=== PATIENT | male | born 1945 | race Caucasian/White ===

== ENCOUNTER 2016-07-27 17:22 | Inpatient (IN) | payer MEDICARE, MEDICAID ==
[~2016-07-27] VITALS: Ht 190.5 cm; Wt 119.5 kg
[~2016-07-27 17:22] MED LIST: ASPI-991 PO; ATOR40TA PO; CARB-94 PO; CHOL100044 PO; DOCU250C30 PO; ESCI10TA PO; FERR325T6 PO; FURO20TA4 PO; GABA-534 PO; ISOS10TA2 PO; LISI10TA5 PO; LORA1TAB PO; METF500T4 PO; METO-302 PO; MIRT15TA8 PO; OXYC30TA2 PO; PANT40TA2 PO; POTA10CA43 PO; PREG50CA PO; PROP10TA10 PO; ZOLP10TA2 PO
[2016-07-27 20:00] VITALS: BP 159/78
--- NOTE | 2016-07-27 20:40 | NUR ---
REPRESENTATIVE PERSONAL SERVICE NOTES RECEIVED PT FROM [facility]IA [facility]ER ACCOMPANIED BY 2 CREWS OF [facility] AMBULANCE. PT WAS TRANSFERRED TO BED SAFELY. PT IS A/O X3, VERBALLY RESPONSIVE. ABLE TO VERBALIZE NEEDS. NO ACUTE DISTRESS, NO SOB NOTED. RESPIRATION IS EVEN AND UNLABORED. ABDOMEN IS SOFT AND NON DISTENDED WITH ACTIVE BOWEL SOUNDS TO ALL 4 QUADRANTS. NO C/O N/V. VS CHECKED, COMPLETE BODY ASSESSMENT DONE. IV SITE ON LFA G22 INTACT AND PATENT, NO S/S OF INFILTRATION NOTED. NO C/O CHEST PAIN AT THIS TIME. ALL NEEDS AT THIS TIME ATTENDED AND MET , KEPT CLEAN, DRY AND COMFORTABLE. SAFETY PRECAUTIONS OBSERVED. CALL LIGHT WITHIN REACH. WILL CONTINUE TO MONITOR.
[2016-07-27 20:58] VITALS: BP 147/72
--- NOTE | 2016-07-27 21:00 | NUR ---
PLACED A CALLED TO [facility] REGARDING ADMISSION ORDERS , STILL AWAITING FOR CALL BACK
[2016-07-27] MEDS ORDERED: NITROGLYCERIN 0.4 MG/TAB BOTTLE SL PRN (22:00)
[2016-07-27] MEDS ORDERED: Z GUARD REMEDY 2 OZ OINT TP PRN (23:30)
[2016-07-27] MEDS ORDERED: ACETAMINOPHEN 325 MG TABLET PO PRN (23:30)
[2016-07-27] MEDS ORDERED: ZOLPIDEM TARTRATE 5 MG TABLET PO PRN (23:30)
[2016-07-27] MEDS ORDERED: ENOXAPARIN SODIUM 40 MG/0.4 ML DISP.SYRIN SQ SCH (23:30)
[2016-07-27] MEDS ORDERED: ONDANSETRON HCL/PF 4 MG/2 ML VIAL IVP PRN (23:30)
[2016-07-27] MEDS ORDERED: HYDROCODONE/APAP 10/325MG 1 EA TABLET ONE (23:47)
[2016-07-27] MEDS ORDERED: ENOXAPARIN SODIUM 40 MG/0.4 ML DISP.SYRIN SQ ONE (23:47)
[2016-07-27] MEDS: HYDROCODONE/APAP 10/325MG 1 EA TABLET PO PRN (23:53)
[2016-07-28] MEDS ORDERED: ZOLPIDEM TARTRATE 5 MG TABLET ONE (01:36)
[2016-07-28] MEDS ORDERED: HYDROCODONE/APAP 10/325MG 1 EA TABLET ONE (05:16)
[2016-07-28] MEDS: HYDROCODONE/APAP 10/325MG 1 EA TABLET PO PRN ×4 (05:22→21:00)
--- NOTE | 2016-07-28 06:43 | NUR ---
PHYSICAL BIOCHEMIST NOTES PT IN BED AWAKE AT THIS TIME, WATCHING TV. PT IS A/O X3, VERBALLY RESPONSIVE. ABLE TO VERBALIZE NEEDS. NO ACUTE DISTRESS, NO SOB NOTED. RESPIRATION IS EVEN AND UNLABORED. ABDOMEN IS SOFT AND NON DISTENDED WITH ACTIVE BOWEL SOUNDS TO ALL 4 QUADRANTS. NO C/O N/V. IV SITE ON LFA G22 INTACT AND PATENT, NO S/S OF INFILTRATION NOTED. NO C/O CHEST PAIN AT THIS TIME. ALL NEEDS ATTENDED AND MET , KEPT CLEAN, DRY AND COMFORTABLE. SAFETY PRECAUTIONS OBSERVED. CALL LIGHT WITHIN REACH. WILL ENDORSE TO NEXT SHIFT FOR RENETTA.
[2016-07-28 07:07] VITALS: BP 152/83
[2016-07-28 07:32] LABS: BASOPHILS % (AUTO) 0.3 % (0.0-2.0); EOSINOPHILS % (AUTO) 0.9 % (0.0-6.0); HEMATOCRIT 37 % (39-51); HEMOGLOBIN 12.2 g/dL (13.5-17.5); LYMPHOCYTES % (AUTO) 21.3 % (20.0-44.0); MEAN CORPUSCULAR HEMOGLOBIN 29 PG (26.0-33.0); MEAN CORPUSCULAR HGB CONC 33 g/dl (31.0-36.0); MEAN CORPUSCULAR VOLUME 87 fL (80-96); MONOCYTES # (AUTO) 0.4 /CMM (0.1-1.30); MONOCYTES % (AUTO) 7.6 % (2.0-12.0); NEUTROPHILS # (AUTO) 3.3 /CMM (1.8-8.9); NEUTROPHILS % (AUTO) 69.9 % (43.0-81.0); PLATELET COUNT (AUTO) 149 /CMM (150-450); RDW COEFFICIENT OF VARIATION 14.6 (11.5-15.0); RED BLOOD CELL COUNT(AUTO) 4.23 MIL/uL (4.5-6.0); WHITE BLOOD COUNT (AUTO) 4.8 K/uL (4.3-11.0)
--- NOTE | 2016-07-28 07:41 | NUR ---
REPRODUCTION PRODUCTION MANAGER OPENING NOTE PATIENT IS AWAKE ALERT AND ORIENTED x3. BED LOCKED IN LOWEST POSITION WITH SIDERAILS UP x2. NO PAIN AT THIS TIME. NO SOB OR DISTRESS NOTED. IV INTACT AND PATENT. CALL LIGHT WITHIN REACH. SAFETY MEASURES IMPLEMENTED. ALL NURSING CARE NEEDS WILL BE ATTENDED TO. NOT COMPLAINING OF CHEST PAIN. WILL CONTINUE TO MONITOR
[2016-07-28] MEDS ORDERED: GABAPENTIN 300 MG CAPSULE PO SCH (07:50)
[2016-07-28 07:51] LABS: ALBUMIN 3.6 g/dL (3.4-5.0); BILIRUBIN,TOTAL 0.8 mg/dL (0.2-1.0); CALCIUM, SERUM 9.1 mg/dL (8.5-10.1); CREATININE 1.1 mg/dL (0.6-1.3); MAGNESIUM 1.9 mg/dL (1.8-2.4); PHOSPHORUS 2.7 mg/dL (2.5-4.9); POTASSIUM 4.3 mmol/L (3.5-5.1); TOTAL PROTEIN, SERUM 6.9 g/dL (6.4-8.2)
[2016-07-28 07:56] LABS: THYROID STIMULATING HORMONE 0.29 uIU/mL (0.358-3.74)
[2016-07-28 08:00] VITALS: BP 142/92
[2016-07-28] MEDS: POTASSIUM CHLORIDE 10 MEQ TABLET.SA PO SCH (08:16)
[2016-07-28] MEDS: ISOSORBIDE DINITRATE (10MG) 10 MG TABLET PO SCH ×3 (08:16→16:30)
[2016-07-28] MEDS: LISINOPRIL (10MG) 10 MG TABLET PO SCH (08:16)
[2016-07-28] MEDS: CHOLECALCIFEROL 1,000 UNIT TABLET (VIT D3) PO SCH (08:16)
[2016-07-28] MEDS: METOPROLOL SUCCINATE 25 MG TAB.SR.24H PO SCH (08:16)
[2016-07-28] MEDS: CARBIDOPA/LEVODOPA 25/250 MG 1 UDTAB PO SCH ×3 (08:16→20:59)
[2016-07-28] MEDS: DOCUSATE SODIUM 250 MG CAPSULE PO SCH ×2 (08:16→16:30)
[2016-07-28] MEDS: ASPIRIN EC 81 MG TABLET.DR PO SCH (08:16)
[2016-07-28] MEDS: FUROSEMIDE 20 MG TABLET PO SCH ×2 (08:17→16:30)
[2016-07-28] MEDS: FERROUS SULFATE (325 MG) 325 MG/TAB TABLET PO SCH ×2 (08:17→16:30)
[2016-07-28] MEDS: PANTOPRAZOLE 40 MG TABLET.DR PO SCH (08:19)
[2016-07-28] MEDS: GABAPENTIN 400 MG CAPSULE PO SCH ×3 (08:31→20:58)
[2016-07-28] MEDS ORDERED: CARBIDOPA/LEVODOPA 25/250 MG 1 UDTAB PO SCH (09:00)
[2016-07-28] MEDS: METFORMIN 500 MG TABLET PO SCH (11:42)
[2016-07-28 12:00] VITALS: BP 124/71
[2016-07-28 16:00] VITALS: BP 111/67
--- NOTE | 2016-07-28 18:42 | NUR ---
EEG TECHNOLOGIST CLOSING NOTE PATIENT IS AWAKE ALERT AND ORIENTED x3. NO PAIN AT THIS TIME. NO SOB OR DISTRESS NOTED. ALL DUE MEDICATIONS GIVEN ORDERED. ALL NURSING CARE NEEDS RENDERED FOR. IV INTACT AND PATENT, NO REDNESS OR SWELLING NOTED. BED LOCKED IN LOWEST POSITION WITH SIDERAILS UP x2. AMBULATORY WITH WALKER, AND STANDBY ASSISTANCE. WILL HAVE LABS IN AM. POSSIBLE DISCHARGE TOMORROW MORNING. CALL LIGHT WITHIN REACH AT ALL TIMES, SAFETY MEASURES IMPLEMENTED. WILL ENDORSE TO TECHNICIAN CHEMICAL CLEANING NURSE FOR RENETTA Addendum: 07/28/16 at 1849 by RICCARDO KIRBY RN NO LONGER TELE. MEDSU
--- NOTE | 2016-07-28 19:30 | NUR ---
Received patient in the bed.No unusual signs or symptoms observed or reported,no signs of discomfort or distress.Vital signs taken,all are in the normal range.
[2016-07-28 20:00] VITALS: BP 129/69
[2016-07-28] MEDS: ATORVASTATIN 40 MG TABLET PO SCH (20:58)
[2016-07-28] MEDS: ENOXAPARIN SODIUM 40 MG/0.4 ML DISP.SYRIN SQ SCH (21:05)
--- NOTE | 2016-07-28 23:10 | NUR ---
Patient informed me that the Somes [place] he took was not working because he usually takes Oxycodone 30 mg at home.Called MD who gave orders for medication and ordered the Somes [place] DC'd.Carried out order and medicate patient,no problems.
[2016-07-28] MEDS ORDERED: oxyCODONE HCL SR 10MG TAB.SR.12H PO ONE (23:49)
[2016-07-28] MEDS ORDERED: oxyCODONE HCL SR 20MG TAB.SR.12H PO ONE (23:50)
[2016-07-28] MEDS: oxyCODONE HCL SR 20MG TAB.SR.12H PO PRN (23:56)
[2016-07-28] MEDS: oxyCODONE HCL SR 10MG TAB.SR.12H PO PRN (23:57)
[2016-07-29] MEDS ORDERED: oxyCODONE HCL SR 10MG TAB.SR.12H PO ONE (05:01)
[2016-07-29] MEDS ORDERED: oxyCODONE HCL SR 20MG TAB.SR.12H PO ONE (05:02)
[2016-07-29] MEDS: GABAPENTIN 400 MG CAPSULE PO SCH ×3 (05:12→22:36)
[2016-07-29] MEDS: CARBIDOPA/LEVODOPA 25/250 MG 1 UDTAB PO SCH ×3 (05:12→22:36)
[2016-07-29] MEDS: oxyCODONE HCL SR 10MG TAB.SR.12H PO PRN (05:13)
[2016-07-29] MEDS: oxyCODONE HCL SR 20MG TAB.SR.12H PO PRN (05:13)
[2016-07-29] MEDS: PANTOPRAZOLE 40 MG TABLET.DR PO SCH (06:29)
[2016-07-29] MEDS ORDERED: oxyCODONE IR immediate release 5 MG CAPSULE PO PRN (07:30)
--- NOTE | 2016-07-29 07:30 | NUR ---
Patient pain medication to be held for a while according to Pharmacy.Notify DINORAH Do to contact Pharmacy as to when medication can be resumed.
--- NOTE | 2016-07-29 07:44 | NUR ---
RN MS NOTES PATIENT ALERT AND ORIENTED, DENIES PAIN OR DISCOMFORT, NO SOB AT THIS TIME, PIV PATENT AND INTACT, FLUSHES WELL WITH NS, LOW BED LOCKED POSITION, SIDERAILS X2 UP, CALL LIGHT WITHIN REACH, WILL CONTINUE TO MONITOR.
[2016-07-29 08:00] VITALS: BP 127/73
[2016-07-29 08:05] LABS: BASOPHILS % (AUTO) 0.4 % (0.0-2.0); EOSINOPHILS # (AUTO) 0.1 /CMM (0.0-0.7); EOSINOPHILS % (AUTO) 1.7 % (0.0-6.0); HEMATOCRIT 38 % (39-51); HEMOGLOBIN 12.6 g/dL (13.5-17.5); LYMPHOCYTES # (AUTO) 1.7 /CMM (0.8-4.8); LYMPHOCYTES % (AUTO) 31.5 % (20.0-44.0); MEAN CORPUSCULAR HEMOGLOBIN 29 PG (26.0-33.0); MEAN CORPUSCULAR HGB CONC 33 g/dl (31.0-36.0); MEAN CORPUSCULAR VOLUME 87 fL (80-96); MONOCYTES # (AUTO) 0.4 /CMM (0.1-1.30); MONOCYTES % (AUTO) 7.8 % (2.0-12.0); NEUTROPHILS # (AUTO) 3.2 /CMM (1.8-8.9); NEUTROPHILS % (AUTO) 58.6 % (43.0-81.0); PLATELET COUNT (AUTO) 148 /CMM (150-450); RDW COEFFICIENT OF VARIATION 14.8 (11.5-15.0); RED BLOOD CELL COUNT(AUTO) 4.34 MIL/uL (4.5-6.0); WHITE BLOOD COUNT (AUTO) 5.4 K/uL (4.3-11.0)
[2016-07-29 08:23] LABS: CALCIUM, SERUM 8.8 mg/dL (8.5-10.1); MAGNESIUM 1.4 mg/dL (1.8-2.4); PHOSPHORUS 3.6 mg/dL (2.5-4.9); POTASSIUM 3.5 mmol/L (3.5-5.1)
[2016-07-29] MEDS: ASPIRIN EC 81 MG TABLET.DR PO SCH (08:56)
[2016-07-29] MEDS: DOCUSATE SODIUM 250 MG CAPSULE PO SCH ×2 (08:56→17:09)
[2016-07-29] MEDS: FERROUS SULFATE (325 MG) 325 MG/TAB TABLET PO SCH ×2 (08:56→17:09)
[2016-07-29] MEDS: METFORMIN 500 MG TABLET PO SCH (08:57)
[2016-07-29] MEDS: POTASSIUM CHLORIDE 10 MEQ TABLET.SA PO SCH (08:57)
[2016-07-29] MEDS: FUROSEMIDE 20 MG TABLET PO SCH ×2 (08:57→17:09)
[2016-07-29] MEDS: ISOSORBIDE DINITRATE (10MG) 10 MG TABLET PO SCH ×3 (08:57→17:00)
[2016-07-29] MEDS: LISINOPRIL (10MG) 10 MG TABLET PO SCH (08:57)
[2016-07-29] MEDS: CHOLECALCIFEROL 1,000 UNIT TABLET (VIT D3) PO SCH (08:58)
[2016-07-29] MEDS: METOPROLOL SUCCINATE 25 MG TAB.SR.24H PO SCH (08:58)
[2016-07-29] MEDS ORDERED: SECONDARY IV SET 1 EA INFUS.SET MC ONE (10:38)
[2016-07-29] MEDS ORDERED: IV SET PRIMARY PUMP SET 1 EA INFUS.SET MC ONE (10:39)
[2016-07-29] MEDS ORDERED: IV NS 0.9% 250 ML IV ONE (10:39)
[2016-07-29] MEDS: Magnesium 1GM/D5W 100ML PREMIX 100 ML IV SCH ×2 (10:53→11:47)
--- NOTE | 2016-07-29 11:45 | NUR ---
RN MS NOTES PATIENT SEEN BY DR. SCHMID WITH NEW ORDERS FOR LEXISCAN STRESS TEST, PATIENT AWARE AND SIGNED CONSENT FOR PROCEDURE TOMORROW. PATIENT WILL BE NPO AFTER MIDNIGHT, BARNEY MARKETING ASSISTANT RETAIL DIVISION WILL TALK TO THE PATIENT REGARDING PAIN MEDICATIONS.
[2016-07-29] MEDS: HYDROCODONE/APAP 10/325MG 1 EA TABLET PO PRN ×3 (14:43→23:20)
[2016-07-29 16:00] VITALS: BP 102/70
--- NOTE | 2016-07-29 18:39 | NUR ---
DINORAH MS NOTES PATIENT IN BED, ALERT AND ORIENTED, NO SIGNIFICANT CHANGE THIS SHIFT, DENIES PAIN OR DISCOMFORT AT THIS TIME, PIV ON LFA - SALINE LOCK, PATENT AND INTACT, MAGNESIUM REPLACED THIS SHIFT, VITAL SIGNS STABLE, LOW BED/LOCKED POSITION, ASSISTED WITH ADLS, CALL LIGHT WITHIN REACH, WILL CONTINUE TO MONITOR. Addendum: 07/29/16 at 1848 by NIURKA WATSON RN WILL ENDORSE TO FLAT SURFACER JEWEL FOR RENETTA.
--- NOTE | 2016-07-29 19:15 | NUR ---
MS/RN NOTES RECEIVED PT. LYING IN BED. AWAKE, ALERT AND ORIENTED X3. BREATHING EVEN AND UNLABORED ON ROOM AIR. NO SOB OR RESPIRATORY DISTRESS NOTED AT THIS TIME. PT. COMPLAINING OF PAIN IN HIS HAND AND FEET. PT. PRN PAIN MEDICATION [place] AD[facility]. WILL CONTINUE TO MONITOR FOR PAIN MEDICATION EFFECTIVENESS AND PAIN. PT. WITH LEFT FOREARM IV SALINE LOCK PRESENT, PATENT AND INTACT. BED IN LOWEST POSITION, CALL LIGHT WITHIN REACH, WILL CONTINUE TO MONITOR.
[2016-07-29 20:00] VITALS: BP 110/65
--- NOTE | 2016-07-29 20:53 | NUR ---
MS/RN NOTES PT. WITH LOW GRADE TEMPERATURE 99.2 ADMINISTERED TO PT. TYLENOL 650MG PO PRN FEVER AND PLACED COOL WASHCLOTH ON PT. FOREHEAD. PT. REFUSING ICE PACKS AT THIS TIME. WILL CONTINUE TO MONITOR.
[2016-07-29] MEDS: ENOXAPARIN SODIUM 40 MG/0.4 ML DISP.SYRIN SQ SCH (21:00)
[2016-07-29] MEDS: ATORVASTATIN 40 MG TABLET PO SCH (22:36)
--- NOTE | 2016-07-29 22:45 | NUR ---
MS/RN NOTES PT. TEMP 98.7F MEDICATION AND COOLING MEASURES EFFECTIVE. WILL CONTINUE TO MONITOR.
--- NOTE | 2016-07-29 23:50 | NUR ---
MS/RN NOTES PT. REFUSING PICTURES TO BE TAKEN AT THIS TIME. STATING HE DOES NOT WANT TO BE BOTHERED. PT. BECOMING AGITATED. WILL ATTEMPT AGAIN AT A LATER TIME. WILL CONTINUE TO MONITOR.
[2016-07-30] MEDS: CARBIDOPA/LEVODOPA 25/250 MG 1 UDTAB PO SCH ×2 (05:00→13:11)
[2016-07-30] MEDS: GABAPENTIN 400 MG CAPSULE PO SCH ×2 (05:00→13:10)
[2016-07-30] MEDS: HYDROCODONE/APAP 10/325MG 1 EA TABLET PO PRN ×3 (05:15→14:34)
--- NOTE | 2016-07-30 06:24 | NUR ---
MS/RN NOTES NOTIFIED MD SCHMID PT. REFUSING STRESS TEST THIS MORNING. EDUCATED PT. ON IMPORTANCE OF HAVING STRESS TEST. PT. VERBALIZED UNDERSTANDING AND CONTINUES TO REFUSE. PER DR. SHARMAINE STYLES, NOTIFY NUCLEAR MEDICINE. CALLED AND LEFT A MESSAGE FOR NUCLEAR MEDICINE THAT PT. IS REFUSING STRESS TEST, WILL CONTINUE TO MONITOR.
--- NOTE | 2016-07-30 06:50 | NUR ---
MS/RN NOTES PT. LYING IN BED RESTING. BREATHING EVEN AND UNLABORED ON ROOM AIR. NO SOB, RESPIRATORY DISTRESS OR COMPLAINTS OF PAIN NOTED AT THIS TIME. PT. WITH LEFT FOREARM IV SALINE LOCK PRESENT, PATENT AND INTACT. PT. REFUSED LEXISCAN THIS MORNING. MD SCHMID AWARE AND LMESSAGE LEFT FOR NUCLEAR MEDICINE. PT. CONTINUES TO REFUSE PICTURES TO BE TAKEN OF HIS WOUNDS. WILL ENDORSE TO DAYSHIFT NURSE. ALL PT. NEEDS MET. BED IN LOWEST POSITION, CALL LIGHT WITHIN REACH, WILL ENDORSE TO DAYSHIFT NURSE FOR CONTINUITY OF CARE.
[2016-07-30 08:00] VITALS: BP 122/79
[2016-07-30] MEDS ORDERED: REGADENOSON 0.4 MG/5 ML DISP.SYRIN IVP ONE (08:00)
--- NOTE | 2016-07-30 08:12 | NUR ---
RN AM NOTES RECEIVED PATIENT STANDING UP IN WALKER, AMBULATING TO SHAVE. GAVE HIM SHAVING SUPPLIES REQUESTED. PATIENT REFUSING STRESS TEST. EXPLAINED BENEFITS AND DISADVANTAGES. RADIOLOGY EXPLAINED TO HIM RISKS AND BENEFITS OF STRESS TEST. PATIENT STILL REFUSED. MD AWARE. CONTACTING MD TO GET NPO STATUS CHANGED.
[2016-07-30] MEDS: DOCUSATE SODIUM 250 MG CAPSULE PO SCH (09:00)
[2016-07-30 09:36] LABS: BASOPHILS % (AUTO) 0.5 % (0.0-2.0); EOSINOPHILS # (AUTO) 0.1 /CMM (0.0-0.7); EOSINOPHILS % (AUTO) 2.6 % (0.0-6.0); HEMATOCRIT 42 % (39-51); HEMOGLOBIN 13.8 g/dL (13.5-17.5); LYMPHOCYTES # (AUTO) 1.3 /CMM (0.8-4.8); LYMPHOCYTES % (AUTO) 32.6 % (20.0-44.0); MEAN CORPUSCULAR HEMOGLOBIN 28 PG (26.0-33.0); MEAN CORPUSCULAR HGB CONC 33 g/dl (31.0-36.0); MEAN CORPUSCULAR VOLUME 87 fL (80-96); MONOCYTES # (AUTO) 0.4 /CMM (0.1-1.30); MONOCYTES % (AUTO) 8.6 % (2.0-12.0); NEUTROPHILS # (AUTO) 2.3 /CMM (1.8-8.9); NEUTROPHILS % (AUTO) 55.7 % (43.0-81.0); PLATELET COUNT (AUTO) 170 /CMM (150-450); RDW COEFFICIENT OF VARIATION 14.8 (11.5-15.0); RED BLOOD CELL COUNT(AUTO) 4.86 MIL/uL (4.5-6.0); WHITE BLOOD COUNT (AUTO) 4.1 K/uL (4.3-11.0)
[2016-07-30] MEDS: FERROUS SULFATE (325 MG) 325 MG/TAB TABLET PO SCH (10:04)
[2016-07-30] MEDS: METFORMIN 500 MG TABLET PO SCH (10:04)
[2016-07-30] MEDS: CHOLECALCIFEROL 1,000 UNIT TABLET (VIT D3) PO SCH (10:05)
[2016-07-30] MEDS: ISOSORBIDE DINITRATE (10MG) 10 MG TABLET PO SCH ×2 (10:05→13:11)
[2016-07-30] MEDS: LISINOPRIL (10MG) 10 MG TABLET PO SCH (10:05)
[2016-07-30] MEDS: POTASSIUM CHLORIDE 10 MEQ TABLET.SA PO SCH (10:06)
[2016-07-30] MEDS: FUROSEMIDE 20 MG TABLET PO SCH (10:06)
[2016-07-30] MEDS: PANTOPRAZOLE 40 MG TABLET.DR PO SCH (10:06)
[2016-07-30] MEDS: ASPIRIN EC 81 MG TABLET.DR PO SCH (10:06)
[2016-07-30] MEDS: METOPROLOL SUCCINATE 25 MG TAB.SR.24H PO SCH (10:07)
[2016-07-30 10:28] LABS: CALCIUM, SERUM 9.4 mg/dL (8.5-10.1); CREATININE 1.1 mg/dL (0.6-1.3); POTASSIUM 3.9 mmol/L (3.5-5.1)
[2016-07-30 10:33] LABS: ALBUMIN 4.1 g/dL (3.4-5.0); BILIRUBIN,TOTAL 0.9 mg/dL (0.2-1.0); PHOSPHORUS 3.8 mg/dL (2.5-4.9); TOTAL PROTEIN, SERUM 7.7 g/dL (6.4-8.2)
[2016-07-30 13:11] VITALS: BP 116/72
--- NOTE | 2016-07-30 14:50 | NUR ---
REGISTRATION CLERK NOTES PATIENT LEFT VIA AMBULANCE TO [facility] ACCOMPANIED BY 2 TECHNICAL SALES ASSOCIATE. PERSONAL BELONGINGS GIVEN. PATIENT IN STABLE CONDITION. ALL MEDS, INCLUDING PAIN MEDS GIVEN. PATIENT IN STABLE CONDITION. TRANSFER PACKET GIVEN TO TECHNICAL SALES ASSOCIATE AND TRANSFER FORM FAXED TO GWEN AT FACILITY. GAVE REPORT TO GWEN COPELAND. PATIENT LEFT FACILITY SAFELY. Addendum: 07/30/16 at 1524 by KENTON PUGH RN PATIENT REFUSED NURSE TO TAKE PICTURES
== END 2016-07-30 14:44 | DRG 92 ==
LOC: TELE 20:12 → MED 07-28 12:54
PROVIDERS: ADMIT Nurse Practitioner Acute Care; ATTEND Family Medicine
DX: G89.29 Other chronic pain (principal); I50.32 Chronic diastolic (congestive) heart failure; E11.22 Type 2 diabetes mellitus with diabetic chronic kidney disease; I12.9 Hypertensive chronic kidney disease with stage 1 through stage 4 chronic kidney disease, or unspecified chronic kidney disease; N18.9 Chronic kidney disease, unspecified; Z95.1 Presence of aortocoronary bypass graft; I25.10 Atherosclerotic heart disease of native coronary artery without angina pectoris; E78.5 Hyperlipidemia, unspecified; I48.91 Unspecified atrial fibrillation; D64.9 Anemia, unspecified; M19.90 Unspecified osteoarthritis, unspecified site; Z95.0 Presence of cardiac pacemaker; G20 Parkinson's disease; E83.42 Hypomagnesemia; Z76.5 Malingerer [conscious simulation]
CPT/HCPCS: 36415; 80048-TC; 80053-TC; 80061-TC; 83735-TC; 84100-TC; 84439-TC; 84443-TC; 84484-TC; 85025-TC; 87081-TC; 93307-TC; 97001-TC; J1650; J3475; J7050; Z7610

== ENCOUNTER 2017-10-08 16:16 | Inpatient (IN) | payer MEDICARE, MEDICAID ==
[~2017-10-08] VITALS: Ht 185.4 cm; Wt 100.0 kg
[~2017-10-08 16:16] MED LIST changes: +ASPI-1152 PO; -ASPI-991 PO; -ESCI10TA PO; -LORA1TAB PO; -METF500T4 PO; +METF500T6 PO; -METO-302 PO; +METO-356 PO; -MIRT15TA8 PO; -OXYC30TA2 PO; -PREG50CA PO; -PROP10TA10 PO; -ZOLP10TA2 PO
--- NOTE | 2017-10-08 16:16 | NUR ---
Recieved patient to ed bed 12, patient was brought in by private ems for body aches and weakness and mid sternal chest pain. Pt has a history of open heart surgery about 15 years ago. Pt is a/ox2-3. Appears anxious. Pt refused to be gown. Pt was placed on cardiac and pox monitor. Skin is warm and non diaphoretic. Will cont to monitor. Called for stat ekg.
[2017-10-08 16:48] LABS: BASOPHILS % (AUTO) 0.2 % (0.0-2.0); EOSINOPHILS % (AUTO) 0.7 % (0.0-6.0); HEMATOCRIT 37 % (39-51); HEMOGLOBIN 12.7 g/dL (13.5-17.5); LYMPHOCYTES % (AUTO) 19.2 % (20.0-44.0); MEAN CORPUSCULAR HEMOGLOBIN 30 PG (26.0-33.0); MEAN CORPUSCULAR HGB CONC 35 g/dl (31.0-36.0); MEAN CORPUSCULAR VOLUME 86 fL (80-96); MONOCYTES # (AUTO) 0.3 /CMM (0.1-1.30); MONOCYTES % (AUTO) 5.1 % (2.0-12.0); NEUTROPHILS # (AUTO) 4.1 /CMM (1.8-8.9); NEUTROPHILS % (AUTO) 74.8 % (43.0-81.0); PLATELET COUNT (AUTO) 157 /CMM (150-450); RED BLOOD CELL COUNT(AUTO) 4.26 MIL/uL (4.5-6.0); WHITE BLOOD COUNT (AUTO) 5.4 K/uL (4.3-11.0)
[2017-10-08] MEDS ORDERED: ASPIRIN 325 MG TABLET PO ONE (17:00)
[2017-10-08] MEDS ORDERED: NITROGLYCERIN PACKET 1 GM PACKET TOP ONE (17:00)
[2017-10-08 17:01] LABS: CALCIUM, SERUM 9.8 mg/dL (8.5-10.1); CARBON DIOXIDE 29 mmol/L (21-32); CHLORIDE 97 mmol/L (98-107); CREATININE 1.1 mg/dL (0.6-1.3); GLUCOSE 108 mg/dL (74-106); POTASSIUM 4.5 mmol/L (3.5-5.1); SODIUM SERUM 133 mmol/L (136-145); UREA NITROGEN, BLOOD 14 mg/dL (7-18)
[2017-10-08 17:11] LABS: TROPONIN I < 0.017 ng/mL (0.00-0.056)
[2017-10-08] MEDS ORDERED: NITROGLYCERIN PACKET 1 GM PACKET ONE (17:14)
[2017-10-08] MEDS ORDERED: ASPIRIN 325 MG TABLET ONE (17:15)
--- NOTE | 2017-10-08 17:15 | NUR ---
Pt took removed the nitro paste. He said he feels worse with it. Pt also took off the monitor lead,blood pressure cuff and pox monitor because it's making him feel worse. explained to the patient the risk and benefits of keeping the nitro and the importance of being in the monitor. Pt still refused. Dr. Valdovinos notifed.
--- NOTE | 2017-10-08 18:35 | NUR ---
CALLED DR MAN ON THE PHONE WITH DR GUNDERSON.
[2017-10-08] MEDS ORDERED: LORA1TAB PO (18:58)
[2017-10-08] MEDS ORDERED: MAGN400T6 PO (18:58)
[2017-10-08] MEDS ORDERED: POTA-10 PO (18:58)
[2017-10-08] MEDS ORDERED: ESCI10TA PO (18:58)
[2017-10-08] MEDS ORDERED: LUBI24CA5 PO (18:58)
[2017-10-08] MEDS ORDERED: OXYC30TA2 PO (18:58)
[2017-10-08] MEDS ORDERED: FUROSEMIDE 20 MG/2 ML VIAL ONE (18:59)
[2017-10-08] MEDS ORDERED: FUROSEMIDE 20 MG/2 ML VIAL IV ONE (19:00)
[2017-10-08] MEDS ORDERED: HYDROCODONE/APAP 5/325MG 1 EACH TABLET ONE (19:15)
--- NOTE | 2017-10-08 19:15 | NUR ---
REPORT REC'D FROM KELLEN CARPIO RN FOR RENETTA.
--- NOTE | 2017-10-08 19:16 | NUR ---
PT TAKEN TO THE BATHROOM VIA WC. PT REMOVED ALL MONITOR LEADS AND REFUSES TO CHANGE INTO A GOWN. DR. GUNDERSON IS AWARE.
[2017-10-08] MEDS ORDERED: HYDROCODONE/APAP 5/325MG 1 EACH TABLET PO ONE (19:30)
--- NOTE | 2017-10-08 19:57 | NUR ---
CALLING REPORT TO TELE NURSE.
--- NOTE | 2017-10-08 19:58 | NUR ---
WILL CALL TELE NURSE IN 5 MINS.
--- NOTE | 2017-10-08 20:12 | NUR ---
CALLING REPORT TO TELE NURSE. DINORAH LÓPEZ
[2017-10-08 20:30] VITALS: BP 151/83
[2017-10-08] MEDS ORDERED: ONDANSETRON HCL/PF 4 MG/2 ML VIAL IV PRN (20:30)
[2017-10-08] MEDS ORDERED: ZOLPIDEM TARTRATE 5 MG TABLET PO PRN (20:30)
[2017-10-08] MEDS ORDERED: ACETAMINOPHEN 650 MG/20.3 ML UDC PO PRN (20:30)
[2017-10-08] MEDS ORDERED: ALBUTEROL FS 2.5 MG/0.5 ML VIAL.NEB NEB PRN (21:00)
[2017-10-08] MEDS ORDERED: hydrALAZINE HCL 25 MG TABLET PO PRN (21:00)
[2017-10-08] MEDS ORDERED: IPRATROPIUM NEB FS 0.5 MG/2.5 ML AMPUL.NEB NEB PRN (21:00)
--- NOTE | 2017-10-08 21:00 | NUR ---
TELE/RN OPENING NOTES PT RECEIVED A/OX3. ON ROOM AIR, BREATHING EVEN AND UNLABORED. DENIES SOB, NOTES GENERALIZED PAIN. IV TO RAC PATENT AND INTACT. URINAL PROVIDED AT BEDSIDE. ORIENTED PT TO ROOM AND CALL LIGHT. SIDE RAILS UPX2. BED IN LOW/LOCKED POSITION WITH CALL LIGHT IN REACH, BED ALARM ON FOR SAFETY. PLACED ON TELE MONITOR SHOWING A.FIB/V-PACING WITH HR 66. WILL CONTINUE TO MONITOR
[2017-10-08] MEDS: CARBIDOPA/LEVODOPA 25/250 MG 1 UDTAB PO SCH (21:21)
[2017-10-08] MEDS: oxyCODONE IR immediate release 5 MG PO PRN (21:23)
[2017-10-08] MEDS: ENOXAPARIN SODIUM 40 MG/0.4 ML DISP.SYRIN SQ SCH (21:23)
--- NOTE | 2017-10-08 22:00 | NUR ---
PT RECEIVED LASIX IN ER. ENCOURAGED PT TO USE URINAL DUE TO PT HAVING WEAKNESS AND RECENTLY RECEIVED PAIN MEDICATION. PT STRONGLY REFUSING. EDUCATED ON RISKS OF HAVING FALLS. PT STILL REFUSING. OFFERED FWW TO ASSIST. PT AWARE TO USE CALL LIGHT OF ASSISTANCE.
[2017-10-09] VITALS: BP 108/78
[2017-10-09 04:00] VITALS: BP 132/77
[2017-10-09] MEDS: oxyCODONE IR immediate release 5 MG PO PRN ×3 (05:07→18:33)
--- NOTE | 2017-10-09 06:49 | NUR ---
TELE/RN CLOSING NOTES PT WITH EYES CLOSED, AROUSABLE TO NAME. ON ROOM AIR, BREATHING EVEN AND UNLABORED. DENIES SOB OR PAIN AT THIS TIME. ON TELE MONITOR SHOWING A.FIB/VPACING WITH HR 60. PT REFUSED TO USE URINAL THROUGHOUT SHIFT DESPITE FREQUENT ENCOURAGEMENT AND EDUCATION. ASSISTED TO THE BATHROOM WITH WALKER. WOUND CONSULT ORDERED. IV TO RAC PATENT AND INTACT. PAIN MEDS ADMINISTERED PRN, KEPT PT COMFORTABLE DURING SHIFT. BED REMAINS IN LOW/LOCKED POSITION WITH CALL LIGHT IN REACH. SIDE RAILS UPX2 WITH BED ALARM ON FOR SAFETY. WILL ENDORSE TO DAY SHIFT RN RENETTA.
[2017-10-09 06:52] LABS: TROPONIN I < 0.017 ng/mL (0.00-0.056)
[2017-10-09 07:04] LABS: CHOLESTEROL 187 mg/dL (<200); HDL CHOLESTEROL 61 mg/dL (40-60); LDL 120 mg/dL (0-99); TRIGLYCERIDES 107 mg/dL (30-150)
[2017-10-09 07:45] LABS: IRON, SERUM 86 ug/dl (50-175); TOTAL IRON BINDING CAPACITY 312 ug/dl (250-450)
[2017-10-09 08:00] VITALS: BP 126/71
[2017-10-09] MEDS: MAGNESIUM OXIDE 400 MG TABLET PO SCH ×2 (08:09→16:38)
[2017-10-09] MEDS: POTASSIUM CHLORIDE 20 MEQ TAB.PRT.SR PO SCH (08:09)
[2017-10-09] MEDS: ASPIRIN 325 MG TABLET PO SCH (08:09)
[2017-10-09] MEDS: ESCITALOPRAM OXALATE (10 MG) 10 MG TABLET PO SCH (08:09)
[2017-10-09] MEDS: PANTOPRAZOLE 40 MG TABLET.DR PO SCH (08:09)
[2017-10-09] MEDS: LORAZEPAM 1 MG TABLET PO PRN ×2 (08:10→17:04)
[2017-10-09] MEDS: CARBIDOPA/LEVODOPA 25/250 MG 1 UDTAB PO SCH ×3 (08:10→16:38)
[2017-10-09] MEDS: METOPROLOL SUCCINATE 25 MG TAB.SR.24H PO SCH (08:10)
[2017-10-09] MEDS: FUROSEMIDE 20 MG/2 ML VIAL IV SCH ×2 (08:11→16:37)
--- NOTE | 2017-10-09 09:55 | NUR ---
WOUND CARE CONSULT: PT PRESENTS WITH MULTIPLE DRY LESIONS TO HEAD AND FACE WELL CALLUS TO RT 2ND TOE, PRESENT ON ADMISSION. PT STATES RECENTLY ON ANTIBIOTICS FOR 2ND TOE. RECOMMEND PODIATRY CONSULT. DEFER TO MD FOR FACE/HEAD LESIONS. PT IS AMBULATORY WITH ASSISTANCE AND IS CONTINENT. CURRENT CHRISTINE SCORE IS 21. ALL RECOMMENDATIONS DISCUSSED WITH NURSING STAFF. Addendum: 10/09/17 at 0958 by YASMEEN ALDRIDGE WNDNU Amended: Links added.
[2017-10-09 12:00] VITALS: BP 125/70
[2017-10-09 16:00] VITALS: BP 127/74
--- NOTE | 2017-10-09 18:19 | NUR ---
SALES PROFESSIONAL BILINGUAL CLOSING NOTES Patient is A&O x3, verbally responsive. Reports moderate generalized "cramping" pain with a scale of 7/10. Given Oxy IR @1830. NO SOB noted or reported. No signs of distress. Afebrile. Vpacing @100% underlying rhythm a-fib; HR 70 on tele monitor. Patient was seen by wound MD. IV on right AC 18g; patent and intact. Continue to off-load bilateral heels. All needs anticipated and met. Safety measures in place. Advise patient to call for assistance if needed. Call light within reach. Bed in lowest position. Will endorse to on-coming nurse.
--- NOTE | 2017-10-09 19:15 | NUR ---
RN OPENING NOTES PT AWAKE AND ALERT. RESTING IN BED. NO COMPLAINTS OF PAIN, DISTRESS OR SOB AT THIS TIME. PT TELE MONITORED V PACING AFIB, WITH PACS. PT HAS A RIGHT AC #18 INTACT AND PATENT. SAFETY PRECAUTIONS IN PLACE. BED IN LOWEST LOCKED POSITION, X2 SIDE RAILS UP. CALL LIGHT WITHIN REACH WILL CONTINUE TO MONITOR.
[2017-10-09 20:00] VITALS: BP 106/62
[2017-10-09] MEDS: ENOXAPARIN SODIUM 40 MG/0.4 ML DISP.SYRIN SQ SCH (20:49)
[2017-10-10] VITALS: BP 133/78
--- NOTE | 2017-10-10 02:35 | NUR ---
RN NOTES PT REQUESTED PRN PAIN MEDICATION FOR GENERALIZED PAIN (12/20). WILL ADMINISTER 30 MG OXYCONTIN AND CONTINUE TO MONITOR.
[2017-10-10] MEDS: oxyCODONE IR immediate release 5 MG PO PRN ×4 (02:40→18:09)
--- NOTE | 2017-10-10 02:46 | NUR ---
RN NOTES PT REFUSED FORENSIC INVESTIGATOR. EXPLAINED TO PATIENT THE IMPORTANCE OF MONITORING HIS HEART. CONTINUED TO REFUSED. WILL CONTINUE TO MONITOR.
--- NOTE | 2017-10-10 06:45 | NUR ---
RN CLOSING NOTES RESTING IN BED. NO COMPLAINTS OF PAIN, DISTRESS OR SOB AT THIS TIME. PT REFUSED TELEMETRY MONITORING. PT HAS A RIGHT AC #18 INTACT AND PATENT. SAFETY PRECAUTIONS IN PLACE. BED IN LOWEST LOCKED POSITION, X2 SIDE RAILS UP. CALL LIGHT WITHIN REACH. ALL PATIENT NEEDS MET OVERNIGHT. WILL ENDORSE TO DAY SHIFT NURSE FOR CONTINUITY OF CARE.
[2017-10-10 06:47] LABS: BASOPHILS % (AUTO) 0.4 % (0.0-2.0); EOSINOPHILS % (AUTO) 1.9 % (0.0-6.0); HEMATOCRIT 36 % (39-51); HEMOGLOBIN 12.2 g/dL (13.5-17.5); LYMPHOCYTES # (AUTO) 1.5 /CMM (0.8-4.8); LYMPHOCYTES % (AUTO) 24.8 % (20.0-44.0); MEAN CORPUSCULAR HEMOGLOBIN 30 PG (26.0-33.0); MEAN CORPUSCULAR HGB CONC 34 g/dl (31.0-36.0); MEAN CORPUSCULAR VOLUME 87 fL (80-96); MONOCYTES # (AUTO) 0.5 /CMM (0.1-1.30); MONOCYTES % (AUTO) 8.8 % (2.0-12.0); NEUTROPHILS # (AUTO) 3.8 /CMM (1.8-8.9); NEUTROPHILS % (AUTO) 64.1 % (43.0-81.0); PLATELET COUNT (AUTO) 139 /CMM (150-450); RDW COEFFICIENT OF VARIATION 15.5 (11.5-15.0); RED BLOOD CELL COUNT(AUTO) 4.07 MIL/uL (4.5-6.0)
[2017-10-10 07:04] LABS: CARBON DIOXIDE 28 mmol/L (21-32); CHLORIDE 96 mmol/L (98-107); GLUCOSE 93 mg/dL (74-106); POTASSIUM 4.4 mmol/L (3.5-5.1); SODIUM SERUM 134 mmol/L (136-145); UREA NITROGEN, BLOOD 24 mg/dL (7-18)
--- NOTE | 2017-10-10 07:29 | NUR ---
SHIRT MARKER NOTES Patient received in bed, comfortable and easily arousable. No complaints of pain at this moment. Report from A.M. shift received. Patient refused tele monitoring. Safety measures in place. Call light within reach.
[2017-10-10] MEDS: PANTOPRAZOLE 40 MG TABLET.DR PO SCH (07:51)
[2017-10-10 08:00] VITALS: BP 119/65
[2017-10-10] MEDS: FUROSEMIDE 20 MG/2 ML VIAL IV SCH ×2 (08:18→16:42)
[2017-10-10] MEDS: ESCITALOPRAM OXALATE (10 MG) 10 MG TABLET PO SCH (08:18)
[2017-10-10] MEDS: ASPIRIN 325 MG TABLET PO SCH (08:18)
[2017-10-10] MEDS: CARBIDOPA/LEVODOPA 25/250 MG 1 UDTAB PO SCH ×3 (08:18→16:42)
[2017-10-10] MEDS: POTASSIUM CHLORIDE 20 MEQ TAB.PRT.SR PO SCH (08:18)
[2017-10-10] MEDS: MAGNESIUM OXIDE 400 MG TABLET PO SCH ×2 (08:18→16:42)
[2017-10-10] MEDS: METOPROLOL SUCCINATE 25 MG TAB.SR.24H PO SCH (08:19)
--- NOTE | 2017-10-10 14:20 | NUR ---
M/S RN - Consent Patient signed consent for left temporal and left neck biopsy for suspicious of cancer.
--- NOTE | 2017-10-10 15:00 | NUR ---
M/S RN - Notes Dr. Wilbur Tillman at bedside for left temporal/neck biopsy, specimen sent to the lab. Treatment to biopsy sites done by .
[2017-10-10 16:00] VITALS: BP 96/53
[2017-10-10] MEDS: NEOMY SULF/BACITRAC ZN/POLY 15 GM TUBE TP SCH (17:00)
--- NOTE | 2017-10-10 17:43 | NUR ---
M/S RN CLOSING NOTES Patient in bed, resting comfortably. Not in any type of distress. New treatment ordered for biopsy sites. All needs anticipated and met. Safety measures in place. Bed in lowest position with call light within reach. Will continue with current medical management. Will endorse to oncoming nurse.
--- NOTE | 2017-10-10 19:20 | NUR ---
MS/OPEN HEARTH MELTER; RECEIVED PT IN THE BATHROOM ASSISTED BY THE SURVIVAL EQUIPMENT REPAIRER VOIDED ONLY. PT USED WALKER WHEN HE WENT TO THE BATHROOM. SURGICAL WOUND S/P BIOPSY LT TEMPORAL INTACT . PT INSTRUCTED TO CALL FOR HELP AND CALL LIGHT WITHIN REACH. BED ON LOWER POSITION AND LOCKED FOR SAFETY. SIDE RAILS X 2 ARE UP FOR SAFETY. PT REFUSED LT TEMPORAL SURGICAL WOUND REFUSED TO BE COVERED.
[2017-10-10 20:00] VITALS: BP 109/71
[2017-10-10] MEDS: ENOXAPARIN SODIUM 40 MG/0.4 ML DISP.SYRIN SQ SCH (20:51)
[2017-10-11] MEDS: oxyCODONE IR immediate release 5 MG PO PRN ×3 (00:05→14:30)
--- NOTE | 2017-10-11 00:05 | NUR ---
MS/INFANT LEAD TEACHER; C/O PAIN LT TEMPORAL SITE AND FURTHER SAID GEN. PAIN. BP 117/67 , P 69. OXY IR 30 MG PO Q6 PRN GIVEN ABLE TO SWALLOW WITHOUT PROBLEM.
--- NOTE | 2017-10-11 07:00 | NUR ---
MS/CHANNEL DIRECTOR; SLEPT FAIRLY. HL INTACT. VOIDING. NO BM. WILL CONTINUE TO MONITOR. CALL LIGHT WITHIN REACH. WILL ENDORSE TO THE DAY SHIFT NURSE.
--- NOTE | 2017-10-11 07:40 | NUR ---
MS RN OPENING NOTES RECEIVED PT SITTING UPRIGHT IN BED. AWAKE AND RESPONSIVE. RESPIRATIONS ARE EVEN AND UNLABORED, NOT IN ANY ACUTE DISTRESS NOTED. IV SITE INTACT, NO INFILTRATION NOTED. DRESSING KEPT CLEAN AND DRY. SAFETY MEASURES ARE IN PLACE. INSTRUCTED PT TO USE CALL LIGHT WHEN ASSISTANCE IS NEEDED, CALL LIGHT IS LEFT WITHIN REACH. WILL CONTINUE TO MONITOR THROUGHOUT SHIFT FOR CONTINUITY OF CARE.
[2017-10-11 08:00] VITALS: BP 125/73
[2017-10-11] MEDS: ASPIRIN 325 MG TABLET PO SCH (08:14)
[2017-10-11] MEDS: POTASSIUM CHLORIDE 20 MEQ TAB.PRT.SR PO SCH (08:14)
[2017-10-11] MEDS: PANTOPRAZOLE 40 MG TABLET.DR PO SCH (08:14)
[2017-10-11] MEDS: MAGNESIUM OXIDE 400 MG TABLET PO SCH ×2 (08:14→16:17)
[2017-10-11] MEDS: CARBIDOPA/LEVODOPA 25/250 MG 1 UDTAB PO SCH ×3 (08:14→16:17)
[2017-10-11] MEDS: METOPROLOL SUCCINATE 25 MG TAB.SR.24H PO SCH (08:15)
[2017-10-11] MEDS: NEOMY SULF/BACITRAC ZN/POLY 15 GM TUBE TP SCH (08:15)
[2017-10-11] MEDS: ESCITALOPRAM OXALATE (10 MG) 10 MG TABLET PO SCH (08:17)
[2017-10-11] MEDS ORDERED: FUROSEMIDE 20 MG TABLET PO SCH (09:00)
[2017-10-11] MEDS: MORPHINE SULFATE INJ 2 MG/ML DISP.SYRIN IV PRN ×3 (10:23→20:12)
--- NOTE | 2017-10-11 13:48 | NUR ---
MS RN NOTES PT SEEN AND EXAMINED BY DR. DONOVAN Salmeron/ ORDERS TO BE DISCHARGED TO [facility].
--- NOTE | 2017-10-11 15:48 | NUR ---
MS DINORAH NOTES CALLED [facility], GAVE REPORT TO DINORAH ESTRADA.
[2017-10-11 16:00] VITALS: BP 101/55
--- NOTE | 2017-10-11 19:19 | NUR ---
MS RN CLOSING NOTES ALL DUE MEDS GIVEN, NEEDS MET AND RENDERED. AWAKE AND RESPONSIVE. RESPIRATIONS ARE EVEN AND UNLABORED, NOT IN ANY ACUTE DISTRESS NOTED. DENIES ANY SOB, N/V. IV SITE INTACT, NO INFILTRATION NOTED. DRESSING KEPT CLEAN AND DRY. SAFETY MEASURES ARE IN PLACE. CALL LIGHT IS LEFT WITHIN REACH. WILL ENDORSE TO NEXT SHIFT FOR CONTINUITY OF CARE.
--- NOTE | 2017-10-11 19:30 | NUR ---
MS RN OPENING NOTES: PATIENT IN BED, AOX3, ON ROOM AIR BREATHING EVEN AND UNLABORED. BREATH SOUNDS CLEAR AT UPPER LUNG QUINTANILLA, DIMINISHED AT BASES, NO SIGNS OF RESPI DISTRESS NOTED. PATIENT COMPLAINING OF PAIN SCALED AT 8/10 OVER MIDSTERNUM, NON RADIATING, OVER WHERE THERE IS A SCAR ON HIS CHEST. HE IS ALSO COMPLAINING OF PAIN OVER HIS FOREARMS. PIV OVER RFA G 22W INTACT AND PATENT TO FLUSH. PROVIDED FOR COMFORT AND SAFETY. BED IN LOWEST AND LOCKED POSITION, SIDERAILS UP X 3, CALL LIGHT WITHIN REACH. WILL CONT TO MONITOR.
[2017-10-11 20:00] VITALS: BP 131/72
--- NOTE | 2017-10-11 20:13 | NUR ---
RN NOTES: GAVE MORPHINE 2 MG IV PRN FOR 8/10 MIDSTERNAL CHEST AND LEN FOREARMS PAIN. WILL CONT TO MONITOR.
--- NOTE | 2017-10-11 20:45 | NUR ---
RN NOTES: AMBULANCE AT BEDSIDE TO CLOTH TESTER QUALITY PATIENT. VS CHECKED, STABLE. PATIENT STILL STATES THAT HE HAS CHEST AND FOREARM PAIN BUT STATED THAT IT IS BETTER, NOW SCALED AT 6/10. PATIENT APPEARS CALM AND IN NO DISTRESS, BREATHING EVEN AND UNLABORED. CALLED DR MAN TO INFORM HIM RE PATIENT'S CHEST PAIN COMPLAINT AND IF OK TO DISCHARGE TO SNF, PER DR MAN, [facility] CALLED NATALIE OF [facility] TO GIVE UPDATES. PER NATALIE, THEY WILL ACCEPT PATIENT.
--- NOTE | 2017-10-11 21:05 | NUR ---
DISCHARGE NOTES: DISCHARGE CARE WAS DONE, BELONGINGS LIST CHECKED. PATIENT WAS DISCHARGED FROM MS FLOOR VIA JOHN, AOX3, ON ROOM AIR, BREATHING EVEN AND UNLABORED, WITH AMBULANCE STOCK AND STATION AGENT IN STABLE CONDITION.
== END 2017-10-11 21:05 | DRG 291 ==
LOC: ER 16:21 → TELE 20:03 → MED 10-10 13:20
PROVIDERS: ADMIT Internal Medicine; ATTEND Internal Medicine
PROC: 0HB4XZX Excision of Neck Skin, External Approach, Diagnostic (ICD-10-PCS; principal; 2017-10-10)
PROC: 0HB1XZX Excision of Face Skin, External Approach, Diagnostic (ICD-10-PCS; 2017-10-10)
DX: I13.0 Hypertensive heart and chronic kidney disease with heart failure and stage 1 through stage 4 chronic kidney disease, or unspecified chronic kidney disease (principal); I50.33 Acute on chronic diastolic (congestive) heart failure; I24.9 Acute ischemic heart disease, unspecified; E11.22 Type 2 diabetes mellitus with diabetic chronic kidney disease; E11.40 Type 2 diabetes mellitus with diabetic neuropathy, unspecified; E11.51 Type 2 diabetes mellitus with diabetic peripheral angiopathy without gangrene; D64.9 Anemia, unspecified; C44.42 Squamous cell carcinoma of skin of scalp and neck; F41.9 Anxiety disorder, unspecified; G89.4 Chronic pain syndrome; Z88.2 Allergy status to sulfonamides; G20 Parkinson's disease; N18.9 Chronic kidney disease, unspecified; I25.10 Atherosclerotic heart disease of native coronary artery without angina pectoris; Z95.1 Presence of aortocoronary bypass graft; L57.0 Actinic keratosis; E11.621 Type 2 diabetes mellitus with foot ulcer; F03.90 Unspecified dementia, unspecified severity, without behavioral disturbance, psychotic disturbance, mood disturbance, and anxiety; E66.9 Obesity, unspecified; Z68.29 Body mass index [BMI] 29.0-29.9, adult; I48.91 Unspecified atrial fibrillation; Z95.0 Presence of cardiac pacemaker; Z79.84 Long term (current) use of oral hypoglycemic drugs; R22.0 Localized swelling, mass and lump, head
CPT/HCPCS: 36415; 71045-TC; 80048-TC; 80061-TC; 83540-TC; 83880; 84484-TC; 85025-TC; 87081-TC; 88305-TC; A4606; A6403; J1650; J1940; J2270; Z7610

== ENCOUNTER 2017-10-22 19:31 | Inpatient (IN) | payer MEDICARE, MEDICAID ==
[~2017-10-22] VITALS: Ht 185.4 cm; Wt 102.1 kg
[~2017-10-22 19:31] MED LIST changes: -ASPI-1152 PO; -ATOR40TA PO; -CHOL100044 PO; -DOCU250C30 PO; +ESCI10TA PO; -FURO20TA4 PO; -GABA-534 PO; -ISOS10TA2 PO; -LISI10TA5 PO; +LORA1TAB PO; +LUBI24CA5 PO; +MAGN400T6 PO; -METF500T6 PO; +OXYC30TA2 PO; +POTA-10 PO
[2017-10-22 20:00] VITALS: BP 139/74
[2017-10-22] MEDS ORDERED: MAGNESIUM HYDROXIDE 30 ML UDC PO PRN (20:00)
[2017-10-22] MEDS ORDERED: TEMAZEPAM 15 MG CAPSULE PO PRN (20:00)
[2017-10-22] MEDS ORDERED: MORPHINE SULFATE INJ 2 MG/ML DISP.SYRIN IV PRN (20:00)
[2017-10-22] MEDS ORDERED: MAG HYDROX/AL HYDROX/SIMETH 30 ML UDC PO PRN (20:00)
[2017-10-22] MEDS ORDERED: DEXTROSE 50%-WATER 50 ML DISP.SYRIN IV PRN (20:00)
[2017-10-22] MEDS ORDERED: ONDANSETRON HCL/PF 4 MG/2 ML VIAL IVP PRN (20:00)
[2017-10-22 22:10] VITALS: BP 139/74
--- NOTE | 2017-10-22 22:30 | NUR ---
RECEIVE PT FROM [facility] VIA RFLINT WITH 2 EMT AT 2205 PT A/O X3 WITH PERIOD OF FORGETFULNESS, NON LABORED BREATH SOUNDS, CHEST EXPANSION EQUAL, NO SOB NO COUGH NO CHEST PAIN COMPLAIN. NOT IN DISTRESS, ADMIT TO TELE. ON LOW BED, ABLE TO WALK TO THE BATHROOM WITH ASSIST, HEAD TO TOE ASSESSMENT IS DONE. SAFETY MEASURES IN PLACE WILL MONITOR PT.
[2017-10-22] MEDS: INSULIN REGULAR, HUMAN 100 UNIT/ML 3 ML VIAL SQ PRN (22:42)
[2017-10-22] MEDS: BLOOD SUGAR DIAGNOSTIC 1 EACH STRIP IN SCH (22:42)
[2017-10-22] MEDS ORDERED: CARB-93 PO (22:58)
[2017-10-23] VITALS: BP_SYST 129; BP_SYST 131; BP_DIAS 49; BP_DIAS 67
--- NOTE | 2017-10-23 00:20 | NUR ---
TAIWO HUGHES, PET[place]A PT REFUSED TELE LEADS IN HIS CHEST KEEPS ON REMOVING IT DESPITE EXPLAINING RISKS AND BENEFITS OFFERED 3 TIMES STILL REFUSED STANLEY AWARE PT NOT IN TELE MONITOR.
[2017-10-23] MEDS: oxyCODONE HCL SR 20MG TAB.SR.12H PO PRN ×2 (00:49→15:31)
[2017-10-23] MEDS: LORAZEPAM 1 MG TABLET PO PRN (02:10)
[2017-10-23 04:00] VITALS: BP 129/67
--- NOTE | 2017-10-23 06:00 | NUR ---
PIERCE AND SHAVE PRESS OPERATOR NOTES PT REFUSED LAB DRAW PER PT WANTS LATER IN THE MORNING WILL TRY AGAIN STANLEY HUGHES MADE AWARE
--- NOTE | 2017-10-23 06:12 | NUR ---
MARKET RESEARCH INTERN CLOSING NOTES PT COMFORTABLY ASLEEP AND EASILY AWAKEN, TOLERATING ROOM AIR 96% IN STABLE CONDITION. RESPIRATION EVEN AND UNLABORED. KEPT CLEAN AND DRY AND COMFORTABLE, ALL NURSING CARE RENDERED. NEEDS ATTENDED AND ANTICIPATED, GOOD SKIN CARE PROVIDED. FREQUENT VISUAL CHECK DONE FOR SAFETY EVERY 2 HOURS. ON LOW BED AT ALL TIMES TO ENSURE SAFETY. SAFE HAZARD FREE ENVIRONMENT PROVIDED. NO COMPLAINS OF PAIN. CALL LIGHT WITHIN EASY TO REACH. WILL ENDORSE NEXT SHIFT CONTINUITY OF CARE.
--- NOTE | 2017-10-23 06:12 | NUR ---
PT STILL REFUSES HIS TELE LEADS
--- NOTE | 2017-10-23 07:10 | NUR ---
FIRST ASSIST NOTES RECEIVED PT IN BED IN SEMI COLON POSITION, ALERT, NO C/O PAIN AT THIS TIME, WITH INTACT AND PATENT R WRIST HEPLOCK, SAFETY MEASURES OBSERVED, CALL LIGHT WITHIN REACH, PER PM NURSE ENDORSED, PT REFUSED TELE MONITOR AND MD AWARE, WILL CONT TO MONITOR
--- NOTE | 2017-10-23 08:00 | NUR ---
RN NOTES OFFERED PT TO BE PLACE ON TELE MONITOR, EXPLAINED RISKS AND BENEFITS, PT STATES, "IF YOU'RE GONNA PUT ON, I'M JUST GONNA THROW IT AWAY." OFFERED X3, PT STILL STRONGLY REFUSED, RESPECTS PT'S RIGHTS, WILL NOTIFY MD AGAIN
[2017-10-23] MEDS: BLOOD SUGAR DIAGNOSTIC 1 EACH STRIP IN SCH ×4 (08:04→21:18)
[2017-10-23 08:19] LABS: BASOPHILS % (AUTO) 0.3 % (0.0-2.0); EOSINOPHILS % (AUTO) 1.4 % (0.0-6.0); HEMATOCRIT 34 % (39-51); HEMOGLOBIN 11.6 g/dL (13.5-17.5); LYMPHOCYTES # (AUTO) 1.2 /CMM (0.8-4.8); LYMPHOCYTES % (AUTO) 33.7 % (20.0-44.0); MEAN CORPUSCULAR HGB CONC 34 g/dl (31.0-36.0); MEAN CORPUSCULAR VOLUME 89 fL (80-96); MONOCYTES # (AUTO) 0.4 /CMM (0.1-1.30); MONOCYTES % (AUTO) 10.7 % (2.0-12.0); NEUTROPHILS % (AUTO) 53.9 % (43.0-81.0); PLATELET COUNT (AUTO) 186 /CMM (150-450); RDW COEFFICIENT OF VARIATION 14.8 (11.5-15.0); RED BLOOD CELL COUNT(AUTO) 3.83 MIL/uL (4.5-6.0); WHITE BLOOD COUNT (AUTO) 3.6 K/uL (4.3-11.0)
[2017-10-23 08:30] LABS: CALCIUM, SERUM 9.2 mg/dL (8.5-10.1); CARBON DIOXIDE 28 mmol/L (21-32); CHLORIDE 99 mmol/L (98-107); GLUCOSE 92 mg/dL (74-106); MAGNESIUM 1.9 mg/dL (1.8-2.4); PHOSPHORUS 3.5 mg/dL (2.5-4.9); POTASSIUM 4.6 mmol/L (3.5-5.1); SODIUM SERUM 131 mmol/L (136-145); UREA NITROGEN, BLOOD 17 mg/dL (7-18)
--- NOTE | 2017-10-23 08:41 | NUR ---
WOUND CARE CONSULT: PT REFUSED SKIN ASSESSMENT. DISCUSSED SKIN PROTECTION WITH NURSING STAFF. CURRENT CHRISTINE SCORE IS 19. WILL SEE PT PT CONDITION PERMITS. IN AGREEMENT WITH PLAN OF CARE.
[2017-10-23 08:46] LABS: CHOLESTEROL 180 mg/dL (<200)
[2017-10-23] MEDS: PANTOPRAZOLE 40 MG TABLET.DR PO SCH (09:00)
[2017-10-23] MEDS ORDERED: CARBIDOPA/LEVODOPA 25/100 MG 1 UDTAB PO SCH (09:00)
--- NOTE | 2017-10-23 09:00 | NUR ---
RN NOTES DR SCHMID ON FLOOR, NOTIFIED RE: PT REFUSING TELE MONITOR AND AM LABS, MD MADE NEW ORDER, WILL CONTINUE TO MONITOR
[2017-10-23] MEDS: CARBIDOPA/LEVODOPA 25/250 MG 1 UDTAB PO SCH ×3 (09:01→17:23)
[2017-10-23] MEDS: POTASSIUM CHLORIDE 10 MEQ TABLET.SA PO SCH (09:01)
[2017-10-23] MEDS: FERROUS SULFATE (325 MG) 325 MG/TAB TABLET PO SCH (09:01)
[2017-10-23] MEDS: ESCITALOPRAM OXALATE (10 MG) 10 MG TABLET PO SCH (09:02)
[2017-10-23] MEDS: METOPROLOL SUCCINATE 25 MG TAB.SR.24H PO SCH (09:02)
[2017-10-23] MEDS: ASPIRIN 81 MG TAB.CHEW PO SCH (09:02)
[2017-10-23] MEDS: MAGNESIUM OXIDE 400 MG TABLET PO SCH ×2 (09:02→17:23)
[2017-10-23 09:30] LABS: HDL CHOLESTEROL 56 mg/dL (40-60); LDL 117 mg/dL (0-99); TRIGLYCERIDES 53 mg/dL (30-150)
[2017-10-23] MEDS ORDERED: Z GUARD REMEDY 2 OZ OINT TP PRN (09:30)
[2017-10-23] MEDS ORDERED: FUROSEMIDE 40 MG/4 ML VIAL IV SCH ×2 (10:00→12:00)
[2017-10-23] MEDS: HYDROCODONE/APAP 5/325MG 1 EACH TABLET PO PRN ×3 (11:29→22:37)
[2017-10-23] MEDS: INSULIN REGULAR, HUMAN 100 UNIT/ML 3 ML VIAL SQ PRN (17:29)
--- NOTE | 2017-10-23 19:30 | NUR ---
MS CLOSING NOTES PT IN BED, ALERT IN NO ACUTE DISTRESS, PT REPORTED A DECREASED OF GENERALIZED PAIN OF 4/10, SAFETY MEASURES OBSERVED, ALL NEEDS ATTENDED, ENDORSED TO PM SHIFT NURSE FOR RENETTA
[2017-10-23 20:00] VITALS: BP 98/52
[2017-10-23] MEDS: ACETAMINOPHEN 325 MG TABLET PO PRN (21:18)
[2017-10-24] MEDS: LORAZEPAM 1 MG TABLET PO PRN ×2 (00:09→16:17)
[2017-10-24 01:00] VITALS: BP 123/70
--- NOTE | 2017-10-24 01:03 | NUR ---
MS RN NOTES PT C/O CP 02/19. PT STATES "IT FEELS LIKE SOMEONE PUNCH ME IN THE CHEST." VSS. NOTIFIED DR MAN. MADE AWARE RE PT'S CONDITION WITH NEW ORDERS MADE. ORDERS NOTED AND CARRIED OUT. WILL CONTINUE TO MONITOR.
[2017-10-24] MEDS: MORPHINE SULFATE INJ 4 MG/ML DISP.SYRIN IV PRN ×2 (01:18→12:11)
[2017-10-24] MEDS ORDERED: MORPHINE SULFATE INJ 2 MG/ML DISP.SYRIN IV PRN (01:30)
[2017-10-24] MEDS: oxyCODONE HCL SR 20MG TAB.SR.12H PO PRN ×2 (03:13→17:36)
[2017-10-24] MEDS: HYDROCODONE/APAP 5/325MG 1 EACH TABLET PO PRN ×3 (05:15→22:55)
--- NOTE | 2017-10-24 06:27 | NUR ---
MS RN NOTES AWAKE & RESPONSIVE. NOT IN ANY DISTRESS. NO SOB NOTED. DENIES ANY PAIN OR DISCOMFORT AT THIS TIME. WITH IV-HL PATENT & INTACT. MONITORED ACCORDINGLY. CALL LIGHT WITHIN REACH. BED IN LOWEST POSITION. SR UP X2 FOR SAFETY. WILL ENDORSE TO NEXT SHIFT.
[2017-10-24 06:32] LABS: BASOPHILS % (AUTO) 0.4 % (0.0-2.0); EOSINOPHILS % (AUTO) 1.4 % (0.0-6.0); HEMATOCRIT 37 % (39-51); HEMOGLOBIN 12.4 g/dL (13.5-17.5); LYMPHOCYTES # (AUTO) 1.6 /CMM (0.8-4.8); LYMPHOCYTES % (AUTO) 35.3 % (20.0-44.0); MEAN CORPUSCULAR HGB CONC 34 g/dl (31.0-36.0); MEAN CORPUSCULAR VOLUME 90 fL (80-96); MONOCYTES # (AUTO) 0.4 /CMM (0.1-1.30); MONOCYTES % (AUTO) 9.8 % (2.0-12.0); NEUTROPHILS # (AUTO) 2.3 /CMM (1.8-8.9); NEUTROPHILS % (AUTO) 53.1 % (43.0-81.0); PLATELET COUNT (AUTO) 194 /CMM (150-450); RDW COEFFICIENT OF VARIATION 14.3 (11.5-15.0); RED BLOOD CELL COUNT(AUTO) 4.08 MIL/uL (4.5-6.0); WHITE BLOOD COUNT (AUTO) 4.4 K/uL (4.3-11.0)
[2017-10-24 06:53] LABS: TROPONIN I < 0.017 ng/mL (0.00-0.056)
[2017-10-24 06:58] LABS: ALANINE AMINOTRANSFERASE 10 U/L (12-78); ALBUMIN 3.5 g/dL (3.4-5.0); ALKALINE PHOSPHATASE 80 U/L (46-116); ASPARTATE AMINOTRANSFERASE 14 U/L (15-37); BILIRUBIN,TOTAL 0.7 mg/dL (0.2-1.0); CALCIUM, SERUM 9.2 mg/dL (8.5-10.1); CARBON DIOXIDE 27 mmol/L (21-32); CHLORIDE 97 mmol/L (98-107); GLUCOSE 96 mg/dL (74-106); MAGNESIUM 1.8 mg/dL (1.8-2.4); PHOSPHORUS 3.4 mg/dL (2.5-4.9); SODIUM SERUM 132 mmol/L (136-145); TOTAL PROTEIN, SERUM 7.1 g/dL (6.4-8.2); UREA NITROGEN, BLOOD 24 mg/dL (7-18)
[2017-10-24] MEDS: BLOOD SUGAR DIAGNOSTIC 1 EACH STRIP IN SCH ×4 (07:30→21:57)
[2017-10-24 08:00] VITALS: BP 132/72
--- NOTE | 2017-10-24 08:00 | NUR ---
ms rn received on bed, awake,alert,oriented x3,not in any form of distress, respirations even and unlabored,no sob noted, lungs are clear,abdomen soft,positive bowel sounds, denies pain at this time, will monitor patient's condition.
--- NOTE | 2017-10-24 09:00 | NUR ---
ms mtz breakfast served due meds given,tolerated well.
[2017-10-24] MEDS: CARBIDOPA/LEVODOPA 25/250 MG 1 UDTAB PO SCH ×3 (09:30→16:17)
[2017-10-24] MEDS ORDERED: ONDANSETRON 4 MG TAB.RAPDIS SL PRN (09:30)
[2017-10-24] MEDS: FERROUS SULFATE (325 MG) 325 MG/TAB TABLET PO SCH (09:30)
[2017-10-24] MEDS: ESCITALOPRAM OXALATE (10 MG) 10 MG TABLET PO SCH (09:30)
[2017-10-24] MEDS: ASPIRIN 81 MG TAB.CHEW PO SCH (09:30)
[2017-10-24] MEDS: POTASSIUM CHLORIDE 10 MEQ TABLET.SA PO SCH (09:31)
[2017-10-24] MEDS: METOPROLOL SUCCINATE 25 MG TAB.SR.24H PO SCH (09:31)
[2017-10-24] MEDS: MAGNESIUM OXIDE 400 MG TABLET PO SCH ×2 (09:31→16:17)
[2017-10-24] MEDS: PANTOPRAZOLE 40 MG TABLET.DR PO SCH (09:32)
--- NOTE | 2017-10-24 11:30 | NUR ---
ms rn received w/o iv heplock,inserted one by charge nurse, one dose of lasix given.
[2017-10-24 11:39] LABS: IRON, SERUM 52 ug/dl (50-175); TOTAL IRON BINDING CAPACITY 329 ug/dl (250-450)
[2017-10-24 11:54] LABS: FERRITIN 70 ng/mL (8-388)
--- NOTE | 2017-10-24 12:00 | NUR ---
ms rn refused iv, removed it at this time.
[2017-10-24] MEDS: FUROSEMIDE 40 MG/4 ML VIAL IV SCH ×3 (12:10→19:30)
--- NOTE | 2017-10-24 15:00 | NUR ---
ms rn was seen by dr. murphy, was aware that lasix not given, was told that it's ok, does not need lasix anyway.
[2017-10-24 16:00] VITALS: BP 121/61
--- NOTE | 2017-10-24 17:00 | NUR ---
ms rn patient is anxious, becoming noncompliant, meds given,all needs attended.
--- NOTE | 2017-10-24 18:46 | NUR ---
ms rn on bed, no distress noted.
--- NOTE | 2017-10-24 19:30 | NUR ---
RN NOTES RECEIVED PT IN BED, AWAKE, A/O X 3, VERBALLY RESPONSIVE, NO SOB NOTED AT THIS TIME. ASPIRATION PRECAUTION OBSERVED.IV SITE ON LEFT THUMB INTACT AND PATENT, NO S/S OF INFILTRATION NOTED. NO C/O PAIN OR DISCOMFORT AT THIS TIME. NO S/S OF HYPO/ HYPERGLYCEMIA NOTED. SAFETY PRECAUTIONS OBSERVED. ALL NEEDS ATTENDED AND MET. POC DISCUSSED WITH THE PT, PT FOR STRESS TEST IN AM , PROCEDURE EXPLAINED AND PT VERBALIZED UNDERSTANDING, PT ALSO UNDERSTANDS THAT HE NEEDS TO BE ON NPO AFTER MIDNIGHT. CALL LIGHT WITHIN REACH. WILL CONTINUE TO MONITOR.
--- NOTE | 2017-10-24 20:16 | NUR ---
pt refused lasix, pt is a/o x 3 , verbally responsive. risk and benefits explained, pt still refused x 3. pt denies sob nor acute distress at this time. will cont to monitor.
[2017-10-24] MEDS: ACETAMINOPHEN 325 MG TABLET PO PRN (21:57)
--- NOTE | 2017-10-25 03:45 | NUR ---
PT C/O RIGHT ARM PAIN 12/20, NON PHARMACOLOGICAL INTERVENTION RENDERED INEFFECTIVE , PT REQUESTED FOR MORPHINE IV GIVEN ORDERED. BP : 129/79, HR : 84, 02 SAT : 97 %, RR: 19, WILL CONT TO MONITOR.
--- NOTE | 2017-10-25 04:00 | NUR ---
ASSISTED PT TO THE BATHROOM , WITH JL GRAVEL INSPECTOR, PT IS AMBULATORY WITH ASSIST. ABLE TO URINATE FREELY WITH YELLOW URINE, NO HEMATURIA NOTED. ASSISTED PT BACK TO BED, ABLE TO GET BACK TO BED SAFELY.
--- NOTE | 2017-10-25 04:10 | NUR ---
PT ASKING FOR WATER AT THIS TIME, BUT PT IS AWARE THAT HE CANNOT HAVE WATER, EXPLAINED TO THE PT THAT HE CANNOT HAVE WATER OR ANY FOOD BECAUSE OF THE LEXISCAN IN THE MORNING. PT VERBALIZED "I SHOULD'VE DRANK WATER WHEN I WAS IN THE BATHROOM " , " IF I WANT TO DRINK I'M GOING TO DRINK IF I WANT TO STAND UP , I WILL STAND UP", REMINDED PT TO CALL IF HE NEEDS ANYTHING OR ANY ASSISTANCE AND NOT TO HESITATE. , PT VERBALIZED "I KNOW ". SAFETY PRECAUTIONS OBSERVED.
--- NOTE | 2017-10-25 06:52 | NUR ---
MS RN NOTES PT IN BED, ASLEEP AT THIS TIME, AROUSES EASILY, A/O X 3, VERBALLY RESPONSIVE, NO SOB NOTED AT THIS TIME. ASPIRATION PRECAUTION OBSERVED. IV SITE ON LFA INTACT AND PATENT, NO S/S OF INFILTRATION NOTED. NO C/O PAIN OR DISCOMFORT AT THIS TIME. NO S/S OF HYPO/ HYPERGLYCEMIA NOTED. SAFETY PRECAUTIONS OBSERVED. ALL NEEDS ATTENDED AND MET. PT FOR STRESS TEST, CONSENT SIGNED BY THE PT, PT ON NPO STARTING MIDNIGHT. CALL LIGHT WITHIN REACH. WILL ENDORSE TO NEXT SHIFT FOR RENETTA. .
--- NOTE | 2017-10-25 07:30 | NUR ---
PROJECTION ENGINEER INITIAL NOTES RECEIVED PATIENT AWAKE IN BED, AOX3, NO SIGNS OF DISTRESS, ROOM AIR, AMBULATORY, EDUCATED TO USE CALL LIGHT DUE TO UNSTEADY GAIT, VERBALIZED UNDERSTANDING, ANNISCAN SCHEDULED FOR 0800, PATIENT IS NPO AT THIS TIME ALL DUE MEDS AND BREAKFAST TO BE GIVEN AFTER PROCEDURE, BED IN LOW AND LOCKED POSITION, CALL LIGHT WITHIN REACH, WILL CONTINUE TO MONITOR.
[2017-10-25 08:00] VITALS: BP 117/64
[2017-10-25] MEDS ORDERED: REGADENOSON 0.4 MG/5 ML DISP.SYRIN IVP ONE (08:00)
[2017-10-25] MEDS: BLOOD SUGAR DIAGNOSTIC 1 EACH STRIP IN SCH ×4 (08:14→21:37)
[2017-10-25] MEDS: CARBIDOPA/LEVODOPA 25/250 MG 1 UDTAB PO SCH ×3 (10:07→17:19)
[2017-10-25] MEDS: FERROUS SULFATE (325 MG) 325 MG/TAB TABLET PO SCH (10:07)
[2017-10-25] MEDS: PANTOPRAZOLE 40 MG TABLET.DR PO SCH (10:07)
[2017-10-25] MEDS: ESCITALOPRAM OXALATE (10 MG) 10 MG TABLET PO SCH (10:08)
[2017-10-25] MEDS: MAGNESIUM OXIDE 400 MG TABLET PO SCH ×2 (10:08→17:19)
[2017-10-25] MEDS: METOPROLOL SUCCINATE 25 MG TAB.SR.24H PO SCH (10:08)
[2017-10-25] MEDS: ASPIRIN 81 MG TAB.CHEW PO SCH (10:08)
[2017-10-25] MEDS: POTASSIUM CHLORIDE 10 MEQ TABLET.SA PO SCH (10:08)
[2017-10-25 12:00] VITALS: BP 127/80
[2017-10-25] MEDS: HYDROCODONE/APAP 5/325MG 1 EACH TABLET PO PRN ×2 (12:40→21:41)
[2017-10-25 16:00] VITALS: BP 125/69
[2017-10-25] MEDS: MORPHINE SULFATE INJ 4 MG/ML DISP.SYRIN IV PRN ×2 (16:01→20:10)
[2017-10-25] MEDS: oxyCODONE IR immediate release 5 MG PO PRN ×2 (17:20→23:33)
[2017-10-25 17:41] LABS: EOSINOPHILS % (AUTO) 0.6 % (0.0-6.0); HEMATOCRIT 39 % (39-51); HEMOGLOBIN 12.8 g/dL (13.5-17.5); LYMPHOCYTES # (AUTO) 1.3 /CMM (0.8-4.8); LYMPHOCYTES % (AUTO) 19.7 % (20.0-44.0); MEAN CORPUSCULAR HGB CONC 33 g/dl (31.0-36.0); MEAN CORPUSCULAR VOLUME 90 fL (80-96); MONOCYTES # (AUTO) 0.3 /CMM (0.1-1.30); MONOCYTES % (AUTO) 5.2 % (2.0-12.0); NEUTROPHILS # (AUTO) 4.7 /CMM (1.8-8.9); NEUTROPHILS % (AUTO) 74.5 % (43.0-81.0); PLATELET COUNT (AUTO) 192 /CMM (150-450); RDW COEFFICIENT OF VARIATION 14.3 (11.5-15.0); RED BLOOD CELL COUNT(AUTO) 4.27 MIL/uL (4.5-6.0); WHITE BLOOD COUNT (AUTO) 6.4 K/uL (4.3-11.0)
[2017-10-25 17:55] LABS: ALANINE AMINOTRANSFERASE 9 U/L (12-78); ALBUMIN 3.5 g/dL (3.4-5.0); ALKALINE PHOSPHATASE 82 U/L (46-116); ASPARTATE AMINOTRANSFERASE 16 U/L (15-37); BILIRUBIN,TOTAL 0.6 mg/dL (0.2-1.0); CALCIUM, SERUM 9.2 mg/dL (8.5-10.1); CARBON DIOXIDE 24 mmol/L (21-32); CHLORIDE 98 mmol/L (98-107); CREATININE 0.8 mg/dL (0.6-1.3); GLUCOSE 107 mg/dL (74-106); MAGNESIUM 1.9 mg/dL (1.8-2.4); PHOSPHORUS 3.3 mg/dL (2.5-4.9); POTASSIUM 5.4 mmol/L (3.5-5.1); SODIUM SERUM 132 mmol/L (136-145); TOTAL PROTEIN, SERUM 7.3 g/dL (6.4-8.2); UREA NITROGEN, BLOOD 19 mg/dL (7-18)
--- NOTE | 2017-10-25 18:33 | NUR ---
MIXING OPERATOR NOTES DR MAN SEES PATIENT, MADE AWARE OF PATIENTS NEW LAB RESULT AND LEXISCAN RESULTS.
--- NOTE | 2017-10-25 18:39 | NUR ---
CASINO SUPERVISOR END NOTES PATIENT IS RESTING IN BED, PAIN MEDICATIONS GIVEN, ALL NEEDS ATTENDED TO, WILL ENDORSE TO RUBBER MOULDING MACHINE OPERATOR FOR CONTINUITY OF CARE.
--- NOTE | 2017-10-25 19:20 | NUR ---
RN M/S NOTE PATIENT RECEIVED AOX3, NO S/SX OF RESPIRATORY OR CARDIAC DISTRESS, ON ROOM AIR, SPEECH CLEAR, DENIES ANY PAIN CURRENTLY.LFA #22G SL, SITE CDI, PATENT FLUSHING WELL. SKIN KEPT CLEAN AND DRY. AMBULATORY WITH ASSIST, BRP. NO S/SX OF HYPO/HYPERGLYCEMIA. SAFETY MAINTAINED AT ALL TIMES, BED IN LOW LOCKED POSITION, CALL LIGHT WITHIN REACH, WILL CONTINUE TO MONITOR FOR ANY CHANGES IN CONDITION.
[2017-10-25 20:00] VITALS: BP 121/63
[2017-10-25] MEDS: INSULIN REGULAR, HUMAN 100 UNIT/ML 3 ML VIAL SQ PRN (21:41)
[2017-10-26] MEDS: MORPHINE SULFATE INJ 4 MG/ML DISP.SYRIN IV PRN ×3 (00:36→12:00)
[2017-10-26] MEDS: HYDROCODONE/APAP 5/325MG 1 EACH TABLET PO PRN ×4 (02:14→19:38)
[2017-10-26 04:00] VITALS: BP 114/71
--- NOTE | 2017-10-26 07:45 | NUR ---
RN NOTE: PATIENT RECEIVED ALERT AWAKE ORIENTED X 3, ON ROOM AIR, NO BREATHING DIFFICULTY NOTED. CONTINUE ON PAIN MANAGEMENT MEDICATION ORDERED. IV SITE, INTACT, DRESSING CLEAN & DRY. SAFETY MEASURES OBSERVED. CALL LIGHT WITHIN REACH. WILL CONTINUE TO MONITOR.
[2017-10-26 08:00] VITALS: BP 126/75
[2017-10-26] MEDS: BLOOD SUGAR DIAGNOSTIC 1 EACH STRIP IN SCH ×4 (08:53→22:12)
[2017-10-26] MEDS: ASPIRIN 81 MG TAB.CHEW PO SCH (08:54)
[2017-10-26] MEDS: MAGNESIUM OXIDE 400 MG TABLET PO SCH ×2 (08:54→16:16)
[2017-10-26] MEDS: CARBIDOPA/LEVODOPA 25/250 MG 1 UDTAB PO SCH ×3 (08:54→16:16)
[2017-10-26] MEDS: FERROUS SULFATE (325 MG) 325 MG/TAB TABLET PO SCH (08:54)
[2017-10-26] MEDS: METOPROLOL SUCCINATE 25 MG TAB.SR.24H PO SCH (08:54)
[2017-10-26] MEDS: PANTOPRAZOLE 40 MG TABLET.DR PO SCH (08:54)
[2017-10-26] MEDS: ESCITALOPRAM OXALATE (10 MG) 10 MG TABLET PO SCH (08:54)
[2017-10-26 09:21] LABS: BASOPHILS % (AUTO) 0.6 % (0.0-2.0); HEMATOCRIT 41 % (39-51); HEMOGLOBIN 13.6 g/dL (13.5-17.5); LYMPHOCYTES # (AUTO) 1.7 /CMM (0.8-4.8); LYMPHOCYTES % (AUTO) 36.4 % (20.0-44.0); MEAN CORPUSCULAR HGB CONC 33 g/dl (31.0-36.0); MEAN CORPUSCULAR VOLUME 90 fL (80-96); MONOCYTES # (AUTO) 0.3 /CMM (0.1-1.30); MONOCYTES % (AUTO) 6.5 % (2.0-12.0); NEUTROPHILS # (AUTO) 2.6 /CMM (1.8-8.9); NEUTROPHILS % (AUTO) 54.5 % (43.0-81.0); PLATELET COUNT (AUTO) 187 /CMM (150-450); RDW COEFFICIENT OF VARIATION 14.5 (11.5-15.0); RED BLOOD CELL COUNT(AUTO) 4.51 MIL/uL (4.5-6.0); WHITE BLOOD COUNT (AUTO) 4.8 K/uL (4.3-11.0)
[2017-10-26 09:34] LABS: ALANINE AMINOTRANSFERASE 15 U/L (12-78); ALBUMIN 3.6 g/dL (3.4-5.0); ALKALINE PHOSPHATASE 93 U/L (46-116); ASPARTATE AMINOTRANSFERASE 14 U/L (15-37); BILIRUBIN,TOTAL 0.5 mg/dL (0.2-1.0); CALCIUM, SERUM 9.2 mg/dL (8.5-10.1); CARBON DIOXIDE 26 mmol/L (21-32); CHLORIDE 98 mmol/L (98-107); CREATININE 0.9 mg/dL (0.6-1.3); GLUCOSE 122 mg/dL (74-106); MAGNESIUM 1.9 mg/dL (1.8-2.4); POTASSIUM 4.4 mmol/L (3.5-5.1); SODIUM SERUM 132 mmol/L (136-145); TOTAL PROTEIN, SERUM 7.6 g/dL (6.4-8.2); UREA NITROGEN, BLOOD 20 mg/dL (7-18)
[2017-10-26] MEDS: LORAZEPAM 1 MG TABLET PO PRN (13:42)
[2017-10-26 16:00] VITALS: BP 109/72
[2017-10-26] MEDS: oxyCODONE IR immediate release 5 MG PO PRN ×2 (16:17→22:12)
--- NOTE | 2017-10-26 18:32 | NUR ---
RN NOTE: PATIENT REMAIN STABLE. NO SIGNIFICANT CHANGES NOTED DURING SHIFT. CONTINUE WITH PRN PAIN MANAGEMENT MEDICATION ORDERED FOR CHEST PAIN/ DISCOMFORT. SEEN BY DR. MAN & DR. SCHMID AT BEDSIDE, AWARE ABOUT CHEST PAIN. AMBULATORY. SAFETY MEASURES OBSERVED. CALL LIGHT WITHIN REACH. WILL CONTINUE TO MONITOR.
--- NOTE | 2017-10-26 19:15 | NUR ---
RN M/S NOTE PATIENT RECEIVED AOX3, NO S/SX OF RESPIRATORY DISTRESS, ON ROOM AIR, SPEECH CLEAR, DENIES ANY PAIN CURRENTLY, LFA #22G SL, SITE CDI, PATENT FLUSHING WELL. SKIN KEPT CLEAN AND DRY. CONT TO REPORT PAIN 9/10 IN BACK AND CHEST WILL CONTINUE TO MONITOR AND GIVE PRN MEDICATION. AMBULATORY WITH ASSIST, BRP. NO S/SX OF HYPO/HYPERGLYCEMIA. SAFETY MAINTAINED AT ALL TIMES, BED IN LOW LOCKED POSITION, CALL LIGHT WITHIN REACH, WILL CONTINUE TO MONITOR FOR ANY CHANGES IN CONDITION.
--- NOTE | 2017-10-26 22:07 | NUR ---
RN M/S NOTE PATIENT IS IRRITABLE STATING PAIN MEDICATIONS ARE INEFFECTIVE, STATES HE WILL CALL THE POLICE BECAUSE MEDICATIONS DO NOT WORK FOR HIM. PATIENT EDUCATED ON PAIN MANAGEMENT WITH MEDICATION USE AND WELL NON PHARMACOLOGICAL PAIN MANAGEMENT, PATIENT IS NOT INTERESTED, WILL CONTINUE TO REINFORCE EDUCATION.
[2017-10-27] MEDS: HYDROCODONE/APAP 5/325MG 1 EACH TABLET PO PRN ×3 (00:59→10:31)
[2017-10-27 04:00] VITALS: BP 109/70
[2017-10-27] MEDS: BLOOD SUGAR DIAGNOSTIC 1 EACH STRIP IN SCH ×4 (08:26→21:41)
[2017-10-27] MEDS: ESCITALOPRAM OXALATE (10 MG) 10 MG TABLET PO SCH (08:32)
[2017-10-27] MEDS: PANTOPRAZOLE 40 MG TABLET.DR PO SCH (08:32)
[2017-10-27] MEDS: METOPROLOL SUCCINATE 25 MG TAB.SR.24H PO SCH (08:32)
[2017-10-27] MEDS: CARBIDOPA/LEVODOPA 25/250 MG 1 UDTAB PO SCH ×3 (08:32→17:16)
[2017-10-27] MEDS: ASPIRIN 81 MG TAB.CHEW PO SCH (08:32)
[2017-10-27] MEDS: FERROUS SULFATE (325 MG) 325 MG/TAB TABLET PO SCH (08:32)
[2017-10-27] MEDS: MAGNESIUM OXIDE 400 MG TABLET PO SCH ×2 (08:33→17:15)
--- NOTE | 2017-10-27 10:23 | NUR ---
CLARIFIED WITH DR. LARA SURGERY PER MD WILL DO IT OUTPATIENT ,DR. SCHMID MADE AWARE.
[2017-10-27] MEDS: MORPHINE SULFATE INJ 4 MG/ML DISP.SYRIN IV PRN (11:58)
[2017-10-27 12:00] VITALS: BP 109/70
--- NOTE | 2017-10-27 13:47 | NUR ---
CLARIFIED WITH DR. DONOVAN TYLER,PER DR. MAN HE SPOKE WITH DR. LARA AND WILL TRY TO RESCHEDULE FOR TMRW.
[2017-10-27] MEDS: oxyCODONE IR immediate release 5 MG PO PRN ×2 (13:49→20:51)
[2017-10-27] MEDS: IV D5/0.45 NACL 500 ML IV SCH ×2 (15:34→23:50)
[2017-10-27 16:00] VITALS: BP 109/64
--- NOTE | 2017-10-27 19:30 | NUR ---
RN INITIAL NOTES: RECEIVED REPORT FROM JACKIE COPELAND, PT IN BED, SLEEPING, APPEARS CALM AND COMFORTABLE, ON RA RESPIRATION EVEN AND UNLABORED. IV ACCESS ON LEFT FA G22 PATENT AND FLUSHING WELL, ON HL. PT WILL HAVE LEFT FACIAL WOUND RESECTION TOMORROW AT, 1230NOON, WILL BE NPO POST MN. SAFETY PRECAUTIONS FOR FALL INITIATED CALL LIGHT IN REACH, WILL CONTINUE MONITORING PT.
[2017-10-27 20:00] VITALS: BP 110/61
--- NOTE | 2017-10-27 20:52 | NUR ---
PRN OXY IR: PT C/O 11/19 PAIN IN HIS CHEST AREA STATED ITS DULL, ACHING NON RADIOATING, MD AWARE OF THE PT'S COMPLAIN AND PT PREFERS TO TREAT IT WITH OXY IR, PRN OXY IR 30MG CAPS ADMINSITERED AT THIS TIME. WILL CONTINUE MONITORING PT.
[2017-10-27] MEDS: INSULIN REGULAR, HUMAN 100 UNIT/ML 3 ML VIAL SQ PRN (21:42)
--- NOTE | 2017-10-27 21:42 | NUR ---
BS 108: BS 108 NO INSULIN COVERAGE GIVEN PER SLIDING SCALE,
--- NOTE | 2017-10-27 22:19 | NUR ---
RN NOTES: SNACKS OFFERED TO THE PT HE WILL BE NPO AFTER MN
--- NOTE | 2017-10-27 23:50 | NUR ---
REFUSAL FOR IVF: PT REFUSED FOR IVF STATED HE DOESNT NEED IT, EDUCATION PROVIDED TO THE PT, REMAINS TO REFUSED IVF AT THIS TIME.
[2017-10-28] MEDS: HYDROCODONE/APAP 5/325MG 1 EACH TABLET PO PRN (00:01)
--- NOTE | 2017-10-28 00:02 | NUR ---
PRN NORCO: PT C/O CHEST PAIN AFTER AMBULATING REQUESTING TO GET HIS OXY IR BUT NOT DUE, REFUSED MORPHINE, AND STATED HE WILL JUST GET NORCO. GIVEN NORCO WITH SIPS OF WATER ONLY, PS 11/19, WILL CONTINUE TO MONITOR AND REASSESS
--- NOTE | 2017-10-28 03:00 | NUR ---
RN NOTES: CHECK ON PT BUT HE'S ASLEEP, RESPIRATION EVEN AND UNLABORED.
[2017-10-28] MEDS: oxyCODONE IR immediate release 5 MG PO PRN ×2 (03:57→21:25)
--- NOTE | 2017-10-28 03:57 | NUR ---
PRN OXY IR: PT C/O 11/19 CHEST PAIN STATED ITS NON RADIATING, STAYS THERE AND COMES AND GO DESCRIBED BY THE PT, REQUESTING FOR OXY IR, PRN OXY IR IR ADMINISTERED TO THE PT AT THIS TIME WITH SIPS OF WATER ONLY, WILL CONTINUE TO MONITOR AND REASSESS
[2017-10-28 04:00] VITALS: BP_SYST 122; BP_DIAS 67; BP_DIAS 97
[2017-10-28] MEDS: BLOOD SUGAR DIAGNOSTIC 1 EACH STRIP IN SCH ×4 (05:47→21:26)
[2017-10-28] MEDS: INSULIN REGULAR, HUMAN 100 UNIT/ML 3 ML VIAL SQ PRN ×3 (05:48→21:30)
--- NOTE | 2017-10-28 05:48 | NUR ---
BS 81: BS 81, NO INSULIN COVERAGE GIVEN PER SLIDING SCALE
--- NOTE | 2017-10-28 06:48 | NUR ---
RN CLOSING NOTES: PT IN BED. LAST PAIN MEDICATION ADMINISTERED AT 0400AM. PT REMAINS NPO FOR LEFT FACIAL WOUND RESECTION WITH PLASTIC TODAY AT 1200 NOON. CONSENT SECURED, CHECKLIST COMPLETED. VS STABLE, IV ACCESS REMAINS PATENT AND FLUSHING WELL, REFUSED FOR IVF, DESPITE PROVIDING EDUCATION. SAFETY PRECAUTIONS FOR FALL REMAINS ENGAGED, CALL LIGHT IN REACH, WILL ENDORSE TO DAY RN FOR REN[place].
[2017-10-28 07:02] LABS: BASOPHILS % (AUTO) 0.4 % (0.0-2.0); EOSINOPHILS % (AUTO) 1.9 % (0.0-6.0); HEMATOCRIT 39 % (39-51); HEMOGLOBIN 13.1 g/dL (13.5-17.5); LYMPHOCYTES # (AUTO) 1.7 /CMM (0.8-4.8); LYMPHOCYTES % (AUTO) 32.7 % (20.0-44.0); MEAN CORPUSCULAR HGB CONC 34 g/dl (31.0-36.0); MEAN CORPUSCULAR VOLUME 90 fL (80-96); MONOCYTES # (AUTO) 0.3 /CMM (0.1-1.30); MONOCYTES % (AUTO) 6.2 % (2.0-12.0); NEUTROPHILS % (AUTO) 58.8 % (43.0-81.0); PLATELET COUNT (AUTO) 169 /CMM (150-450); RDW COEFFICIENT OF VARIATION 14.6 (11.5-15.0); RED BLOOD CELL COUNT(AUTO) 4.32 MIL/uL (4.5-6.0); WHITE BLOOD COUNT (AUTO) 5.1 K/uL (4.3-11.0)
--- NOTE | 2017-10-28 07:30 | NUR ---
PT RECEIVED RESTING COMFORTABLY IN BED. NO S/S OR C/O PAIN OR DISTRESS NOTED. SIDE RAILS UP X2, CALL LIGHT LEFT WITHIN REACH. WILL CONTINUE PLAN OF CARE.
[2017-10-28 07:50] LABS: INR 0.96 (0.87-1.13)
[2017-10-28 08:00] VITALS: BP 126/72
[2017-10-28] MEDS: IV D5/0.45 NACL 500 ML IV SCH ×2 (08:10→16:30)
[2017-10-28] MEDS: MAGNESIUM OXIDE 400 MG TABLET PO SCH ×2 (08:37→16:28)
[2017-10-28] MEDS: PANTOPRAZOLE 40 MG TABLET.DR PO SCH (08:37)
[2017-10-28] MEDS: CARBIDOPA/LEVODOPA 25/250 MG 1 UDTAB PO SCH ×3 (08:38→16:28)
[2017-10-28] MEDS: FERROUS SULFATE (325 MG) 325 MG/TAB TABLET PO SCH (08:38)
[2017-10-28] MEDS: METOPROLOL SUCCINATE 25 MG TAB.SR.24H PO SCH (08:38)
[2017-10-28] MEDS: ASPIRIN 81 MG TAB.CHEW PO SCH (08:38)
[2017-10-28] MEDS: ESCITALOPRAM OXALATE (10 MG) 10 MG TABLET PO SCH (08:38)
[2017-10-28] MEDS: MORPHINE SULFATE INJ 4 MG/ML DISP.SYRIN IV PRN ×2 (11:15→17:20)
[2017-10-28] MEDS ORDERED: ANESTHESIA TRAY IN PYXIS 1 EA TRAY MC ONE (11:58)
[2017-10-28] MEDS ORDERED: BUPIVACAINE 0.25% 75 MG/30 ML VIAL ONE (11:58)
[2017-10-28] MEDS ORDERED: LIDOCAINE 1%-EPI 1:100,000 20 ML VIAL ONE (11:58)
[2017-10-28] MEDS ORDERED: AMIODARONE 150 MG/3 ML VIAL IV ONE (12:29)
--- NOTE | 2017-10-28 14:00 | NUR ---
PT REFUSED HEAD DRESSING NURSING TEACHING PERFORMED TO EXPLAIN IMPORTANCE OF DRESSING BUT PT CONTINUED TO REFUSE AFTER STATING " IF YOU'RE NOT GOING TO TAKE THIS OFF I'M GOING TO TAKE IT OFF MYSELF."
[2017-10-28 16:00] VITALS: BP 106/59
--- NOTE | 2017-10-28 16:30 | NUR ---
SURGICAL SITE ASSESSED WITH NO EVIDENCE OF PROFUSE BLEEDING. WILL CONTINUE TO MONITOR.
--- NOTE | 2017-10-28 18:40 | NUR ---
CHANGE OF SHIFT REPORT PT RESTING COMFORTABLY IN BED. NO S/S OR C/O PAIN OR DISTRESS NOTED. SIDE RAILS UP X2, CALL LIGHT LEFT WITHIN REACH. PT KEPT CLEAN, DRY, AND COMFORTABLE. NO SIGNIFICANT CHANGES SINCE PREVIOUS SHIFT. WILL GIVE REPORT TO LAMBERT COPELAND.
--- NOTE | 2017-10-28 20:00 | NUR ---
RN NOTE PT C/O CHEST PAIN AND DR MAN AT BESIDE. PER DR MAN PT COMPLAINS OF CHEST PAIN ALL THE TIME. ALSO DR MAN STATED "IF YOU HAVE ANY CARDIAC PROBLEMS CALL DR SCHMID". WILL CONTINUE TO MONITOR PT.
[2017-10-28 20:41] VITALS: BP 106/57
[2017-10-29] MEDS: IV D5/0.45 NACL 500 ML IV SCH ×2 (00:18→08:18)
[2017-10-29 04:00] VITALS: BP 100/61
[2017-10-29] MEDS: HYDROCODONE/APAP 5/325MG 1 EACH TABLET PO PRN ×2 (06:28→12:44)
[2017-10-29 08:00] VITALS: BP 99/56
[2017-10-29] MEDS: PANTOPRAZOLE 40 MG TABLET.DR PO SCH (08:08)
[2017-10-29] MEDS: LORAZEPAM 1 MG TABLET PO PRN (08:08)
[2017-10-29] MEDS: ESCITALOPRAM OXALATE (10 MG) 10 MG TABLET PO SCH (08:08)
[2017-10-29] MEDS: FERROUS SULFATE (325 MG) 325 MG/TAB TABLET PO SCH (08:08)
[2017-10-29] MEDS: BLOOD SUGAR DIAGNOSTIC 1 EACH STRIP IN SCH ×2 (08:08→11:49)
[2017-10-29] MEDS: CARBIDOPA/LEVODOPA 25/250 MG 1 UDTAB PO SCH ×3 (08:08→16:36)
[2017-10-29] MEDS: METOPROLOL SUCCINATE 25 MG TAB.SR.24H PO SCH (08:09)
[2017-10-29] MEDS: MAGNESIUM OXIDE 400 MG TABLET PO SCH ×2 (08:09→16:36)
[2017-10-29] MEDS: ASPIRIN 81 MG TAB.CHEW PO SCH (08:11)
[2017-10-29 08:20] VITALS: BP 99/56
[2017-10-29] MEDS: oxyCODONE IR immediate release 5 MG PO PRN ×2 (09:48→16:37)
[2017-10-29 16:00] VITALS: BP 107/60
[2017-10-29 16:54] VITALS: BP 107/60
--- NOTE | 2017-10-29 17:46 | NUR ---
DISCHARGE NOTE PATIENT DISCHARGED TO [facility] CALLED AND GAVE REPORT TO NATALIE COPELAND@ [phone]. DISCHARGE INSTRUCTIONS SIGNED BY PATIENT AND GIVEN TO EMT WITH REPORT ON PATIENT. REMOVED ID BAND. NO IV ASSESS PER PATIENT REFUSAL. ALL ORDERS CARRIED OUT ALL BELONGINGS TAKEN WITH PATIENT. CORE MEASURES DOCUMENTED. PATIENT CLEAN AND DRY. PATIENT HAS NO FAMILY TO CONTACT. PHOTOS TAKEN AND PLACE IN CHART.
== END 2017-10-29 17:42 | DRG 576 ==
LOC: TELE1 21:58 → MEDSG1 10-23 14:13
PROVIDERS: ADMIT Internal Medicine; ATTEND Internal Medicine
PROC: 0HR1X73 Replacement of Face Skin with Autologous Tissue Substitute, Full Thickness, External Approach (ICD-10-PCS; 2017-10-28)
PROC: 0HBBXZZ Excision of Right Upper Arm Skin, External Approach (ICD-10-PCS; 2017-10-28)
PROC: 0HBBXZZ Excision of Right Upper Arm Skin, External Approach (ICD-10-PCS; 2017-10-28)
PROC: 0HR Skin and Breast, Replacement (ICD-10-PCS; principal; 2017-10-28 12:00)
DX: C44.42 Squamous cell carcinoma of skin of scalp and neck (principal); I50.33 Acute on chronic diastolic (congestive) heart failure; D68.59 Other primary thrombophilia; I13.0 Hypertensive heart and chronic kidney disease with heart failure and stage 1 through stage 4 chronic kidney disease, or unspecified chronic kidney disease; I24.9 Acute ischemic heart disease, unspecified; I25.10 Atherosclerotic heart disease of native coronary artery without angina pectoris; E11.22 Type 2 diabetes mellitus with diabetic chronic kidney disease; N18.9 Chronic kidney disease, unspecified; K42.9 Umbilical hernia without obstruction or gangrene; D64.9 Anemia, unspecified; Z79.01 Long term (current) use of anticoagulants; Z91.81 History of falling; Z95.0 Presence of cardiac pacemaker; E78.5 Hyperlipidemia, unspecified; G20 Parkinson's disease; D63.8 Anemia in other chronic diseases classified elsewhere; G89.4 Chronic pain syndrome; F39 Unspecified mood [affective] disorder; F01.50 Vascular dementia, unspecified severity, without behavioral disturbance, psychotic disturbance, mood disturbance, and anxiety; E87.5 Hyperkalemia; E11.42 Type 2 diabetes mellitus with diabetic polyneuropathy; Z95.1 Presence of aortocoronary bypass graft; E11.51 Type 2 diabetes mellitus with diabetic peripheral angiopathy without gangrene; C44.329 Squamous cell carcinoma of skin of other parts of face; I48.0 Paroxysmal atrial fibrillation
CPT/HCPCS: 36415; 71045-TC; 80048-TC; 80053-TC; 80061-TC; 82728-TC; 82962-TC; 83540-TC; 83735-TC; 84100-TC; 84484-TC; 85025-TC; 85610-TC; 85730-TC; 87081-TC; 88305-TC; 93307-TC; A6402; A9502; J0282; J1100; J1815; J1940; J2270; J2785; J3490; Z7610

== ENCOUNTER 2017-11-04 12:59 | Outpatient (CLI) | payer OTHER, MEDICAID ==
[~2017-11-04 12:59] MED LIST changes: +CARB-93 PO
== END 2017-11-04 23:59 | disposition home or self-care (01) ==
LOC: WOU 12:59
PROVIDERS: ATTEND Surgery
DX: C44.42 Squamous cell carcinoma of skin of scalp and neck (principal); I11.0 Hypertensive heart disease with heart failure; I50.9 Heart failure, unspecified; Z79.82 Long term (current) use of aspirin; Z79.899 Other long term (current) drug therapy; Z87.891 Personal history of nicotine dependence; I48.0 Paroxysmal atrial fibrillation; Z95.1 Presence of aortocoronary bypass graft; Z95.0 Presence of cardiac pacemaker
CPT/HCPCS: 11100; 11101; 88305; A6402; J3490; Z7610

== ENCOUNTER 2017-11-11 13:55 | Outpatient (CLI) | payer MEDICARE, MEDICAID | END 2017-11-11 23:59 | disposition home or self-care (01) | LOC: WOU 13:55 | PROVIDERS: ATTEND Surgery | DX: C44.42 Squamous cell carcinoma of skin of scalp and neck (principal); I11.0 Hypertensive heart disease with heart failure; I50.9 Heart failure, unspecified; Z79.82 Long term (current) use of aspirin; Z95.0 Presence of cardiac pacemaker; Z95.1 Presence of aortocoronary bypass graft | CPT/HCPCS: G0463; Z7610 ==

== ENCOUNTER 2017-11-25 13:12 | Outpatient (CLI) | payer MEDICARE, MEDICAID | END 2017-11-25 23:59 | disposition home or self-care (01) | LOC: WOU 13:12 | PROVIDERS: ATTEND Surgery | DX: C44.42 Squamous cell carcinoma of skin of scalp and neck (principal); Z88.2 Allergy status to sulfonamides | CPT/HCPCS: G0463; Z7610 ==

== ENCOUNTER 2017-12-05 01:05 | Emergency (ER) | payer MEDICARE, MEDICAID ==
[~2017-12-05] VITALS: Ht 188 cm; Wt 111.1 kg
--- NOTE | 2017-12-05 01:10 | NUR ---
[facility]RA FROM [facility] FOR SHARP/TIGHT SUBSTERNAL CHEST PAIN. 162 ASA AND 1 NITRO GIVEN IN FIELD. NAD NOTED. PT AAO X3, RR EVEN AND UNLABORED. VSS. MD AT BEDSIDE FOR EVAL.
[2017-12-05 01:31] LABS: BASOPHILS % (AUTO) 0.4 % (0.0-2.0); EOSINOPHILS % (AUTO) 1.1 % (0.0-6.0); HEMATOCRIT 38 % (39-51); HEMOGLOBIN 12.6 g/dL (13.5-17.5); LYMPHOCYTES # (AUTO) 1.5 /CMM (0.8-4.8); LYMPHOCYTES % (AUTO) 31.2 % (20.0-44.0); MEAN CORPUSCULAR HEMOGLOBIN 30 PG (26.0-33.0); MEAN CORPUSCULAR HGB CONC 33 g/dl (31.0-36.0); MEAN CORPUSCULAR VOLUME 91 fL (80-96); MONOCYTES # (AUTO) 0.5 /CMM (0.1-1.30); MONOCYTES % (AUTO) 10.9 % (2.0-12.0); NEUTROPHILS # (AUTO) 2.7 /CMM (1.8-8.9); NEUTROPHILS % (AUTO) 56.4 % (43.0-81.0); PLATELET COUNT (AUTO) 148 /CMM (150-450); RDW COEFFICIENT OF VARIATION 13.8 (11.5-15.0); RED BLOOD CELL COUNT(AUTO) 4.17 MIL/uL (4.5-6.0); WHITE BLOOD COUNT (AUTO) 4.8 K/uL (4.3-11.0)
[2017-12-05 01:40] LABS: CALCIUM, SERUM 8.9 mg/dL (8.5-10.1); CARBON DIOXIDE 26 mmol/L (21-32); CHLORIDE 98 mmol/L (98-107); CREATININE 1.2 mg/dL (0.6-1.3); GLUCOSE 96 mg/dL (74-106); POTASSIUM 4.3 mmol/L (3.5-5.1); SODIUM SERUM 133 mmol/L (136-145); UREA NITROGEN, BLOOD 23 mg/dL (7-18)
[2017-12-05 01:48] LABS: TROPONIN I < 0.017 ng/mL (0.00-0.056)
[2017-12-05 01:49] LABS: INR 0.98 (0.87-1.13)
[2017-12-05 01:53] LABS: B-TYPE NATRIURETIC PEPTIDE 1494 PG/ML (0-125)
[2017-12-05] MEDS ORDERED: IV NS 0.9% 250 ML IV ONE (02:08)
[2017-12-05] MEDS ORDERED: IOHEXOL-300 100 ML VIAL IV ONE (02:08)
[2017-12-05] MEDS ORDERED: CT SWABBABLE VALVE TRANS SET 1 EA INFUS.SET MC ONE (02:08)
--- NOTE | 2017-12-05 02:10 | NUR ---
PT TO CT
[2017-12-05 04:29] VITALS: BP 128/78
== END 2017-12-05 04:29 | disposition home or self-care (01) ==
LOC: ER 01:06
DX: R07.89 Other chest pain (principal); I10 Essential (primary) hypertension; E11.40 Type 2 diabetes mellitus with diabetic neuropathy, unspecified; I48.91 Unspecified atrial fibrillation; I73.9 Peripheral vascular disease, unspecified; Z95.1 Presence of aortocoronary bypass graft; Z88.2 Allergy status to sulfonamides; Z88.8 Allergy status to other drugs, medicaments and biological substances; Z79.899 Other long term (current) drug therapy
CPT/HCPCS: 36415; 71260; 80048; 83880; 84484; 85025; 85730; 87081; 93005; 99285; A4606; J7050; Q9967; Z7610